=== PATIENT | male | born 1980 | race Two or more races ===

== ENCOUNTER 2022-03-27 11:07 | Outpatient (REF) | payer OTHER, SELFPAY ==
[2022-03-27 17:15] LABS: Fentanyl, urine POSITIVE (Not Detect)
== END 2022-03-27 11:08 | disposition home or self-care (01) ==
LOC: HO.LNP 11:07
PROVIDERS: Visit Provider Internal Medicine
DX: F11.20 Opioid dependence, uncomplicated (principal); Z79.899 Other long term (current) drug therapy
CPT/HCPCS: 80305; 80307; 99202

== ENCOUNTER → 2022-04-04 09:36 | Outpatient (BNVA) | payer OTHER, SELFPAY | PROVIDERS: Visit Provider Internal Medicine | DX: Z51.81 Encounter for therapeutic drug level monitoring (principal); F11.20 Opioid dependence, uncomplicated | CPT/HCPCS: 99212 ==

== ENCOUNTER → 2022-04-10 10:07 | Outpatient (BNVA) | payer OTHER, SELFPAY | PROVIDERS: Visit Provider Internal Medicine | DX: F11.20 Opioid dependence, uncomplicated (principal) | CPT/HCPCS: 99212 ==

== ENCOUNTER → 2022-04-17 10:32 | Outpatient (BNVA) | payer OTHER, SELFPAY | PROVIDERS: Visit Provider Internal Medicine | DX: Z51.81 Encounter for therapeutic drug level monitoring (principal); F11.20 Opioid dependence, uncomplicated | CPT/HCPCS: 80305; 99212 ==

== ENCOUNTER → 2022-04-24 10:32 | Outpatient (BNVA) | payer OTHER, SELFPAY | PROVIDERS: Visit Provider Internal Medicine | DX: F11.20 Opioid dependence, uncomplicated (principal); F41.9 Anxiety disorder, unspecified; F32.A Depression, unspecified | CPT/HCPCS: 80305; 99212 ==

== ENCOUNTER 2022-04-24 18:41 | Emergency (ER) | payer OTHER, SELFPAY ==
[2022-04-24 18:44] VITALS: BP 188/109; PULSE 77; RESP 20; TEMP 36.1; O2SAT 96; BMI 34.7
--- NOTE | 2022-04-24 20:33 | ED.WOUNDLAC ---
HPI - Wound/Laceration General Chief Complaint: Wound/Laceration Stated Complaint: Lac Middle Finger L Hand 04/24/22 Time Seen by Provider: 04/24/22 20:20 Source: patient Mode of arrival: ambulatory Limitations: no limitations History of Present Illness HPI narrative: This is a 41-year-old male no significant medical history presenting to the emergency department a laceration to the left 2nd digit, patient accidentally cut his finger while trying to split open frozen meat. Patient is not on blood thinners. He is not up-to-date on a tetanus shot. He is right-hand dominant. Denies numbness or tingling. Onset (ago): hour(s) (3) Location: other (Middle left finger ) Place: home Context: accidental Associated symptoms: none Related Data Previous Rx's Medication Instructions Recorded hydroxyzine pamoate 25 mg capsule 25 mg PO TID PRN nausea,anxiety 7 04/04/22 (Vistaril) days #21 caps bupropion HCl 150 mg 24 hr tablet, 150 mg PO QAM 30 days #30 tabs 04/17/22 extended release (Wellbutrin XL) clonidine HCl 0.1 mg tablet 0.1 mg PO TID PRN anxiety 14 days 04/17/22 #42 tabs buprenorphine 8 mg-naloxone 2 mg 2 film sublingual DAILY 14 days 04/24/22 sublingual film (Suboxone) #28 ea cephalexin 500 mg tablet 500 mg PO Q6H 7 days #28 tabs 04/24/22 doxycycline hyclate 100 mg capsule 100 mg PO BID 7 days #14 caps 04/24/22 Allergies Allergy/AdvReac Type Severity Reaction Status Date / Time No Known Allergies Allergy Verified 04/24/22 10:39 Review of Systems Review of Systems: Constitutional : No Fever, No Chills, Cardiovascular : No Chest Pain, No SOB Respiratory : No Dyspnea Gastrointestinal : No abdominal pain Musculoskeletal : No Joint Swelling Skin : No rash, positive skin laceration Neuro : No Weakness, No Numbness Psych : No SI/HI Yes all other systems are reviewed and are negative PMFSH Past Medical History Attestation statement: The following information was validated with the patient. Source: old records reviewed and nursing notes reviewed Social History Social History Advance Directives: No Advance Directives Information Provided: No Physical Exam Vital Signs: Vital Signs: Last Vital Signs Temp 97 F 04/24/22 18:44 Pulse 77 04/24/22 18:44 Resp 20 04/24/22 18:44 BP 188/109 H 04/24/22 18:44 Pulse Ox 96 04/24/22 18:44 O2 Del Method 04/24/22 18:44 BMI result Body Mass Index 34.7 HTN likely secondary to pain Appearance: Alert.? Oriented X3.? No acute distress.? Head: Normocephalic, atraumatic, no step-offs or deformities Eyes: Pupils equal, round and reactive to light.? ENT: Pharynx normal.? Neck: Normal inspection.? Neck supple.? CVS: Normal heart rate and rhythm.? Pulses normal.? Respiratory: No respiratory distress.? Breath sounds normal.? Abdomen: Soft and nontender.? Skin: Skin warm and dry.? Normal skin color.? Normal skin turgor.?+ laceration to left middle finger Extremities: No lower extremity edema.? No calf ttp. 5/5 strength to bilateral upper and lower extremities Back: No midline tenderness, no C-spine tenderness, full range of motion, no CVA tenderness bilaterally Neuro: Oriented X 3.? No motor deficit.? No sensory deficit. CN 2-12 intact Course Reevaluation(s) Reevaluation #1: Laceration was successfully sutured using two 5-0 sutures. No complications. Advised patient to return with new or worsening symptoms. At this time I feel comfortable discharge home. Time: 21:40 MDM - Wound/Laceration MDM Narrative Medical decision making narrative: 2035 41 yo m presents w/ lac to left middle finger happened prior to his arrival PE significant for lac to left middle finger Plan- suture Medical Records Attestation: I reviewed the patient's medical records. Lab Data Attestation: I reviewed the patient's lab results. Critical Care Time Critical Care Time Critical Care Time: No Discharge Plan Discharge Clinical Impression: Laceration Patient Disposition: Home, Self-Care Instructions: Laceration (ED), Finger Laceration (ED) Additional Instructions: Take your medications as prescribed. If you were prescribed antibiotics today, it is important that you take your medication to their entirety, do not skip any doses, do not finish them early. Follow-up with your primary care provider this week. Return to the emergency department with new or worsening symptoms. In case of emergency call 911 Return in 7-10 days for suture removal Prescriptions: New doxycycline hyclate 100 mg capsule 100 mg PO BID 7 Days Qty: 14 0RF cephalexin 500 mg tablet 500 mg PO Q6H 7 Days Qty: 28 0RF No Action bupropion HCl [Wellbutrin XL] 150 mg tablet extended release 24 hr 150 mg PO QAM 30 Days Qty: 30 5RF clonidine HCl 0.1 mg tablet 0.1 mg PO TID PRN (Reason: anxiety) 14 Days Qty: 42 1RF buprenorphine-naloxone [Suboxone] 8-2 mg film 2 film sublingual DAILY 14 Days Qty: 28 0RF Rx Instructions: place 1 strip/tab under (each) side of tongue hydroxyzine pamoate [Vistaril] 25 mg capsule 25 mg PO TID PRN (Reason: nausea,anxiety) 7 Days Qty: 21 0RF Referrals: Physician,Unknown J [Primary Care Provider] - 2 days Stand Alone Forms: Work/School Release Interventions: ED Discharge Assessment Last Done: 04/24/22 21:18
[2022-04-24] MEDS: Diphth,Pertus(ACell),Tet Adult 0.5 ML SYRINGE IM (21:06)
[2022-04-24] MEDS: Lidocaine HCl 1 % MPF 5 ML VIAL SUBCUT (21:07)
== END 2022-04-24 21:18 | disposition home or self-care (01) ==
PROVIDERS: Emergency Provider Emergency Medicine
DX: S61.213A Laceration without foreign body of left middle finger without damage to nail, initial encounter (principal); W26.9XXA Contact with unspecified sharp object(s), initial encounter; Y93.9 Activity, unspecified; Y92.9 Unspecified place or not applicable; Y99.9 Unspecified external cause status; Z79.899 Other long term (current) drug therapy
CPT/HCPCS: 12001; 90471; 90715; 99282; 99283

== ENCOUNTER 2022-05-10 10:20 | Outpatient (REF) | payer OTHER, SELFPAY ==
[2022-05-15 08:29] LABS: Codeine, Ur 160
[2022-05-15 08:30] LABS: Hydrocodone, Ur NEGATIVE; Hydromorphone, Ur NEGATIVE; Morphine, Ur NEGATIVE; Oxycodone, Ur NEGATIVE
[2022-05-15 08:31] LABS: Norhydrocodone, Ur NEGATIVE; Noroxycodone, Ur NEGATIVE; Oxymorphone, Ur NEGATIVE
[2022-05-15 09:00] LABS: Buprenorphine 95; Naloxone 242; Norbuprenorphine 656
== END 2022-05-10 10:21 | disposition home or self-care (01) ==
LOC: HO.LNP 10:20
PROVIDERS: Visit Provider Internal Medicine
DX: F11.20 Opioid dependence, uncomplicated (principal); Z79.899 Other long term (current) drug therapy
CPT/HCPCS: 80305; 80348; 80362; 80364; 80365; 99212

== ENCOUNTER → 2022-05-16 10:04 | Outpatient (BNVA) | payer OTHER, SELFPAY | PROVIDERS: Visit Provider Internal Medicine | DX: Z51.81 Encounter for therapeutic drug level monitoring (principal); F11.20 Opioid dependence, uncomplicated | CPT/HCPCS: 80305; 99212 ==

== ENCOUNTER → 2022-06-12 09:56 | Outpatient (BNVA) | payer OTHER, SELFPAY | PROVIDERS: Visit Provider Internal Medicine | DX: Z51.81 Encounter for therapeutic drug level monitoring (principal); F11.20 Opioid dependence, uncomplicated | CPT/HCPCS: 99212 ==

== ENCOUNTER → 2022-07-17 10:04 | Outpatient (BNVA) | payer OTHER, SELFPAY | PROVIDERS: Visit Provider Internal Medicine | DX: F11.20 Opioid dependence, uncomplicated (principal) | CPT/HCPCS: 99212 ==

== ENCOUNTER → 2022-08-18 09:43 | Outpatient (BNVA) | payer OTHER, SELFPAY | PROVIDERS: Visit Provider Internal Medicine | DX: F11.20 Opioid dependence, uncomplicated (principal); Z51.81 Encounter for therapeutic drug level monitoring; Z79.899 Other long term (current) drug therapy | CPT/HCPCS: 99212 ==

== ENCOUNTER → 2022-09-20 11:39 | Outpatient (BNVA) | payer OTHER, SELFPAY | PROVIDERS: Visit Provider Internal Medicine | DX: F11.20 Opioid dependence, uncomplicated (principal); Z51.81 Encounter for therapeutic drug level monitoring | CPT/HCPCS: 99212 ==

== ENCOUNTER → 2022-10-25 11:18 | Outpatient (BNVA) | payer OTHER, SELFPAY | PROVIDERS: Visit Provider Nurse Practitioner Psychiatric/Mental Health | DX: F11.20 Opioid dependence, uncomplicated (principal) | CPT/HCPCS: 80305; 99212 ==

== ENCOUNTER → 2022-11-22 09:05 | Outpatient (BNVA) | payer OTHER, SELFPAY | PROVIDERS: Visit Provider Nurse Practitioner Psychiatric/Mental Health | DX: F11.20 Opioid dependence, uncomplicated (principal) | CPT/HCPCS: 99212 ==

== ENCOUNTER → 2022-12-21 08:53 | Outpatient (BNVA) | payer OTHER, SELFPAY | PROVIDERS: Visit Provider Nurse Practitioner Psychiatric/Mental Health | DX: F11.20 Opioid dependence, uncomplicated (principal) | CPT/HCPCS: 99212 ==

== ENCOUNTER → 2023-02-05 15:19 | Outpatient (BNVA) | payer OTHER, SELFPAY | PROVIDERS: Visit Provider Nurse Practitioner Psychiatric/Mental Health | DX: F11.20 Opioid dependence, uncomplicated (principal); Z79.899 Other long term (current) drug therapy | CPT/HCPCS: 99212 ==

== ENCOUNTER → 2023-03-19 15:13 | Outpatient (BNVA) | payer OTHER, SELFPAY | PROVIDERS: Visit Provider Nurse Practitioner Psychiatric/Mental Health | DX: F11.23 Opioid dependence with withdrawal (principal); F41.1 Generalized anxiety disorder; Z71.51 Drug abuse counseling and surveillance of drug abuser; Z79.899 Other long term (current) drug therapy; Z51.81 Encounter for therapeutic drug level monitoring | CPT/HCPCS: 99212 ==

== ENCOUNTER → 2023-04-03 15:09 | Outpatient (BNVA) | payer OTHER, SELFPAY | PROVIDERS: PCP Internal Medicine; Visit Provider Nurse Practitioner Psychiatric/Mental Health | DX: F11.20 Opioid dependence, uncomplicated (principal); F41.1 Generalized anxiety disorder; Z79.899 Other long term (current) drug therapy | CPT/HCPCS: 99212 ==

== ENCOUNTER → 2023-05-03 14:08 | Outpatient (BNVA) | payer OTHER, SELFPAY | PROVIDERS: PCP Internal Medicine; Visit Provider Nurse Practitioner Psychiatric/Mental Health | DX: F11.20 Opioid dependence, uncomplicated (principal) | CPT/HCPCS: 80305; 99212 ==

== ENCOUNTER 2023-06-11 14:02 | Outpatient (AMB) | payer OTHER, SELFPAY ==
--- NOTE | 2023-06-11 14:04 | A.OFFVIS_ITS ---
Intake Vital Signs 06/11/23 14:08 BP 182/110 H Blood Pressure Location Lt radial Position Sitting Pulse 77 Pulse Source Pulse Oximeter Pulse Oximetry (%) 99 Oxygen Delivery Method Room Air Comment the patient/provider is working on his bp Intake Visit Reasons: MAT Visit Intake Note: the patient presents for a mat visit Brick Baker Required: No Allergies No Known Allergies Allergy (Verified 06/11/23 14:08) Do you need a note to return to daycare/school/sports/work: No HPI MAT Visit HPI Details Patient presents for OUD treatment follow up Currently prescribed suboxone 8mg BID Denies any issues related to recovery started a garden ' Vacation went well Appt scheduled with PCP --again discussed high blood pressure, he reports he has been checking at home and it is not as high as it is here in the office [facility] Medical History Opioid use disorder Review of Systems Const Reports as per HPI and Reports no additional complaints Physical Exam Vital Signs: Last Vital Signs Pulse 77 06/11/23 14:08 BP 182/110 H 06/11/23 14:08 Pulse Ox 99 06/11/23 14:08 Oxygen Delivery Method Room Air 06/11/23 14:08 Const General: cooperative and healthy appearing Nutritional Appearance: well nourished Orientation/consciousness: patient oriented x3 Limitations: no limitations Neuro General: patient oriented x3 Psych Appearance: well kempt Mental Status: mental status grossly normal Speech and movement: Normal speech and movement present Affect: normal affect Attitude: cooperative Thought process: Normal thought process present Thought content: Normal thought content present Insight: Good insight present (Psych) Judgement: Good judgement present (Psych) Assessment & Plan Assessment & Plan (1) Opioid use disorder: Code(s): F11.90 - Opioid use, unspecified, uncomplicated Plan: * continue suboxone at current dose * follow up 4 wks * denies any blurred vision, headache or dizziness--encouraged to present to ED should these sx present Medications: Refilled buprenorphine-naloxone 8-2 mg (Suboxone) 1 film sublingual BID 30 days 60 ea 0RF buprenorphine-naloxone 8-2 mg (Suboxone) 1 film sublingual BID 60 ea 0RF 30 days Discontinued hydroxyzine pamoate Discontinued Reason: Patient no longer taking 25 mg PO BEDTIME PRN 30 caps 2RF for anxiety Coding Level of Care Code Est Pt Level 3 (41987) Diagnoses Opioid use disorder F11.90
[2023-06-11 14:08] VITALS: BP 182/110; PULSE 77; O2SAT 99
== END 2023-06-11 14:35 | disposition home or self-care (01) ==
LOC: HO.HCC 14:02
PROVIDERS: PCP Internal Medicine; Visit Provider Nurse Practitioner Psychiatric/Mental Health
DX: F11.90 Opioid use, unspecified, uncomplicated (principal)
CPT/HCPCS: 99213

== ENCOUNTER → 2023-06-11 14:02 | Outpatient (BNVA) | payer OTHER, SELFPAY | PROVIDERS: PCP Internal Medicine; Visit Provider Nurse Practitioner Psychiatric/Mental Health | DX: F11.20 Opioid dependence, uncomplicated (principal) | CPT/HCPCS: 99212 ==

== ENCOUNTER 2023-07-10 13:48 | Outpatient (AMB) | payer OTHER, SELFPAY ==
[2023-07-10 14:08] VITALS: BP 180/90; PULSE 82; O2SAT 98
--- NOTE | 2023-07-10 14:08 | A.OFFVIS_ITS ---
Intake Vital Signs 07/10/23 14:08 BP 180/90 H Blood Pressure Location Lt radial Position Sitting Pulse 82 Pulse Source Pulse Oximeter Pulse Oximetry (%) 98 Oxygen Delivery Method Room Air Intake Visit Reasons: MAT Visit Intake Note: the patient presents for a mat visit Change Management Coordinator Required: No Allergies No Known Allergies Allergy (Verified 07/10/23 14:09) Do you need a note to return to daycare/school/sports/work: No HPI MAT Visit HPI Details Patient presents for follow-up. Currently prescribed Suboxone 8 mg b.i.d.. Continues to do well with recovery. States that he feels stronger every day and reflects back on the time when he was actively using and does not want to go back to that. Relationships continue to strengthen. Sertraline 100 mg daily. Finds it helpful with his mood and is able to decrease reactivity and respond more appropriately. Did not go to see primary care provider. This automobile and property underwriter advised patient that he will need to go to urgent care center prior to his next appointment as his blood pressure continues to be very high. Patient reports that he has been taking his blood pressure at home and it is between 130-140 systolic. This automobile and property underwriter still encouraged patient to present to urgent care to have this addressed. [facility] Medical History Opioid use disorder Review of Systems Const Reports as per HPI Physical Exam Vital Signs: Last Vital Signs Pulse 82 07/10/23 14:08 BP 180/90 H 07/10/23 14:08 Pulse Ox 98 07/10/23 14:08 Oxygen Delivery Method Room Air 07/10/23 14:08 Const General: cooperative and healthy appearing Nutritional Appearance: well nourished Orientation/consciousness: patient oriented x3 Limitations: no limitations Neuro General: patient oriented x3 Psych Appearance: well kempt Mental Status: mental status grossly normal Speech and movement: Normal speech and movement present Affect: normal affect Attitude: cooperative Thought process: Normal thought process present Thought content: Normal thought content present Insight: Good insight present (Psych) Judgement: Good judgement present (Psych) Assessment & Plan Assessment & Plan (1) Opioid use disorder: Code(s): F11.90 - Opioid use, unspecified, uncomplicated Plan: * Continue Suboxone at current dose * Follow up for week (2) ANJU (generalized anxiety disorder): Code(s): F41.1 - Generalized anxiety disorder Plan: * Continue sertraline at current dose Medications: Refilled buprenorphine-naloxone 8-2 mg (Suboxone) 1 film sublingual BID 60 ea 0RF 30 days Coding Level of Care Code Est Pt Level 3 (14121) Diagnoses Opioid use disorder F11.90 ANJU (generalized anxiety disorder) F41.1
== END 2023-07-10 14:13 | disposition home or self-care (01) ==
LOC: HO.HCC 13:48
PROVIDERS: PCP Internal Medicine; Visit Provider Nurse Practitioner Psychiatric/Mental Health
DX: F11.90 Opioid use, unspecified, uncomplicated (principal); F41.1 Generalized anxiety disorder
CPT/HCPCS: 99213

== ENCOUNTER → 2023-07-10 13:48 | Outpatient (BNVA) | payer OTHER, SELFPAY | PROVIDERS: PCP Internal Medicine; Visit Provider Nurse Practitioner Psychiatric/Mental Health | DX: Z51.81 Encounter for therapeutic drug level monitoring (principal); F11.20 Opioid dependence, uncomplicated; F41.1 Generalized anxiety disorder | CPT/HCPCS: 99212 ==

== ENCOUNTER 2023-09-20 15:29 | Outpatient (AMB) | payer OTHER, SELFPAY ==
--- NOTE | 2023-09-20 15:34 | MHC.OFFVIS ---
Intake Vital Signs 09/20/23 15:35 BP 178/98 H Blood Pressure Location Lt radial Position Sitting Pulse 85 Pulse Source Pulse Oximeter Pulse Oximetry (%) 97 Oxygen Delivery Method Room Air Comment the patient is aware of BP Intake Visit Reasons: mat visit Intake Note: the patient presents for a mat visit Custody Officer Required: No Allergies No Known Allergies Allergy (Verified 09/20/23 15:36) Do you need a note to return to daycare/school/sports/work: No HPI mat visit HPI Details Pt presents for OUD treatment and follow up. Blood pressure elevated today, has been consistently elevated for visits. Consistently declining to seek higher level of care for his blood pressure. He reports he takes his pressures at home and they have all been much lower than when he comes into the clinic. Reports he becomes anxious pulling into the parking lot and does not know why. Denies headache, vision changes, or dizziness. Reviewed when he should seek urgent medical attention. Has no concerns with his recovery, states the suboxone has been good, dose is good- he is not experiencing withdrawal symptoms or cravings. Reports his mood is much better with the sertraline, says he is much less irritable denies concerns or side effects from med. Bright affect. He is looking forward to the holidays. [facility] Medical History Opioid use disorder Review of Systems Const Reports as per HPI Physical Exam Vital Signs: Last Vital Signs Pulse 85 09/20/23 15:35 BP 178/98 H 09/20/23 15:35 Pulse Ox 97 09/20/23 15:35 Oxygen Delivery Method Room Air 09/20/23 15:35 Const General: cooperative, healthy appearing and no acute distress Resp Effort & Inspection: normal respiratory effort Skin General skin exam: no rashes or lesions noted Psych Appearance: grossly normal and well kempt Mental Status: mental status grossly normal Speech and movement: Normal speech and movement present Attitude: cooperative Assessment & Plan Assessment & Plan (1) Opioid use disorder: Code(s): F11.90 - Opioid use, unspecified, uncomplicated Plan: Continue suboxone at current dose. Discussed blood pressure monitoring and symptoms he should be aware of to seek emergent care. Follow up in 4 weeks. Plan reviewed with KRISTEN Cortez Medications: Refilled buprenorphine-naloxone 8-2 mg (Suboxone) 1 film sublingual BID 60 ea 0RF 30 days Coding Level of Care Code Est Pt Level 3 (77704) Diagnoses Opioid use disorder F11.90
[2023-09-20 15:35] VITALS: BP 178/98; PULSE 85; O2SAT 97
== END 2023-09-20 15:47 | disposition home or self-care (01) ==
PROVIDERS: PCP Internal Medicine; Visit Provider Nurse Practitioner Psychiatric/Mental Health
DX: F11.90 Opioid use, unspecified, uncomplicated (principal)
CPT/HCPCS: 99213

== ENCOUNTER → 2023-09-20 15:29 | Outpatient (BNVA) | payer OTHER, SELFPAY | PROVIDERS: PCP Internal Medicine; Visit Provider Nurse Practitioner Psychiatric/Mental Health | DX: F11.20 Opioid dependence, uncomplicated (principal) | CPT/HCPCS: 99212 ==

== ENCOUNTER 2023-10-26 11:31 | Outpatient (AMB) | payer OTHER, SELFPAY ==
--- NOTE | 2023-10-26 11:33 | A.OFFVIS_ITS ---
Intake Vital Signs 10/26/23 11:38 BP 178/98 H Blood Pressure Location Lt radial Position Sitting Pulse 86 Pulse Source Palpation Pulse Oximetry (%) 96 Oxygen Delivery Method Room Air Comment THE PATIENT MADE AWARE Intake Visit Reasons: MAT Visit Intake Note: The patient presents for a mat visit Horse Breaker Required: No Allergies No Known Allergies Allergy (Verified 10/26/23 11:44) Do you need a note to return to daycare/school/sports/work: No HPI MAT Visit HPI Details Patient presents for follow up Doing well with recovery BP still high. Met with KRISTEN Harrison in same visit and discussed starting medication Patient willing to trial amlodipine [facility] Medical History (Updated 10/26/23 @ 17:20 by Radha Hoyt CNP) Opioid use disorder Review of Systems Const Reports as per HPI and Reports no additional complaints Physical Exam Vital Signs: Last Vital Signs Pulse 86 10/26/23 11:38 BP 178/98 H 10/26/23 11:38 Pulse Ox 96 10/26/23 11:38 Oxygen Delivery Method Room Air 10/26/23 11:38 Const General: cooperative, healthy appearing and no acute distress Resp Effort & Inspection: normal respiratory effort Skin General skin exam: no rashes or lesions noted Psych Appearance: grossly normal and well kempt Mental Status: mental status grossly normal Speech and movement: Normal speech and movement present Attitude: cooperative Assessment & Plan Assessment & Plan (1) Hypertension: Code(s): I10 - Essential (primary) hypertension Plan: * amlodipine 5mg QD (2) Opioid use disorder, moderate, in sustained remission, dependence: Code(s): F11.21 - Opioid dependence, in remission Plan: * continue suboxone at current dose * follow up 4 weeks Medications: New amlodipine Take 1/2 tab for 3 days and progess to full tab daily if well tolerated 5 mg PO DAILY 30 tabs 0RF Dorita Cortez NP Refilled buprenorphine-naloxone 8-2 mg (Suboxone) 1 film sublingual BID 60 ea 0RF 30 days Radha Hoyt CNP Coding Level of Care Code Est Pt Level 4 (27513) Diagnoses Hypertension I10 Opioid use disorder, moderate, in sustained remission, dependence F11.21
[2023-10-26 11:38] VITALS: BP 178/98; PULSE 86; O2SAT 96
== END 2023-10-26 11:58 | disposition home or self-care (01) ==
PROVIDERS: PCP Internal Medicine; Visit Provider Nurse Practitioner Psychiatric/Mental Health
DX: F11.21 Opioid dependence, in remission (principal); I10 Essential (primary) hypertension
CPT/HCPCS: 99214

== ENCOUNTER → 2023-10-26 11:31 | Outpatient (BNVA) | payer OTHER, SELFPAY | PROVIDERS: PCP Internal Medicine; Visit Provider Nurse Practitioner Psychiatric/Mental Health | DX: F11.21 Opioid dependence, in remission (principal); I10 Essential (primary) hypertension | CPT/HCPCS: 99212 ==

== ENCOUNTER 2023-11-23 14:36 | Outpatient (AMB) | payer OTHER, SELFPAY ==
--- NOTE | 2023-11-23 14:37 | A.OFFVISCC_ITS ---
Intake Vital Signs 11/23/23 14:43 BP 180/90 H Blood Pressure Location Lt radial Position Sitting Pulse 89 Pulse Source Pulse Oximeter Pulse Oximetry (%) 96 Oxygen Delivery Method Room Air Comment the patient is made aware Intake Visit Reasons: MAT Visit Intake Note: the patient is here for a mat visit Powder Mill Operator Required: No Allergies No Known Allergies Allergy (Verified 11/23/23 14:44) Do you need a note to return to daycare/school/sports/work: No HPI MAT Visit HPI Details Patient presents for follow up started on amlodipine 5mg 4 weeks ago BP readings at home have not decreased since starting medication Still reading 160-180/100 Denies any sx, including headache, blurred vision, dizziness, etc No issues related to recovery [facility] Medical History (Updated 10/26/23 @ 17:20 by Radha Hoyt CNP) Opioid use disorder Review of Systems Const Reports as per HPI Physical Exam Vital Signs: Last Vital Signs Pulse 89 11/23/23 14:43 BP 180/90 H 11/23/23 14:43 Pulse Ox 96 11/23/23 14:43 Oxygen Delivery Method Room Air 11/23/23 14:43 Const General: cooperative, healthy appearing and no acute distress Resp Effort & Inspection: normal respiratory effort Skin General skin exam: no rashes or lesions noted Psych Appearance: grossly normal and well kempt Mental Status: mental status grossly normal Speech and movement: Normal speech and movement present Attitude: cooperative Assessment & Plan Assessment & Plan (1) Hypertension: Code(s): I10 - Essential (primary) hypertension Plan: * amlodipine Increased to 10mg QD (discussed with KRISTEN Harrison) * follow up one week BP reading (2) Opioid use disorder, moderate, in sustained remission, dependence: Code(s): F11.21 - Opioid dependence, in remission Plan: * continue suboxone at current dose * follow up 4 weeks Medications: New amlodipine 10 mg PO DAILY 30 tabs 0RF Refilled buprenorphine-naloxone 8-2 mg (Suboxone) 1 film sublingual BID 30 days 60 ea 0RF Discontinued amlodipine Take 1/2 tab for 3 days and progess to full tab daily if well tolerated Discontinued Reason: Doctor's Order 5 mg PO DAILY 30 tabs 0RF Coding Level of Care Code Est Pt Level 3 (80463) Diagnoses Hypertension I10 Opioid use disorder, moderate, in sustained remission, dependence F11.21
[2023-11-23 14:43] VITALS: BP 180/90; PULSE 89; O2SAT 96
== END 2023-11-23 15:05 | disposition home or self-care (01) ==
PROVIDERS: PCP Internal Medicine; Visit Provider Nurse Practitioner Psychiatric/Mental Health
DX: F11.21 Opioid dependence, in remission (principal); I10 Essential (primary) hypertension
CPT/HCPCS: 99213

== ENCOUNTER → 2023-11-23 14:36 | Outpatient (BNVA) | payer OTHER, SELFPAY | PROVIDERS: PCP Internal Medicine; Visit Provider Nurse Practitioner Psychiatric/Mental Health | DX: F11.21 Opioid dependence, in remission (principal); I10 Essential (primary) hypertension | CPT/HCPCS: 99212 ==

== ENCOUNTER 2023-12-25 09:43 | Outpatient (AMB) | payer OTHER, SELFPAY ==
[2023-12-25 10:06] VITALS: BP 156/88; PULSE 64; O2SAT 97; BMI 33.3
--- NOTE | 2023-12-25 10:06 | A.OFFVISCC_ITS ---
Intake Vital Signs 12/25/23 10:06 Height 5 ft 9 in Weight 225 lb 6 oz BMI 33.3 BP 156/88 H Blood Pressure Location Lt radial Position Sitting Pulse 64 Pulse Source Pulse Oximeter Pulse Oximetry (%) 97 Oxygen Delivery Method Room Air Intake Visit Reasons: MAT Visit Intake Note: The patient presents for a mat visit Process Improvement Analyst Required: No Allergies No Known Allergies Allergy (Verified 12/25/23 10:07) Do you need a note to return to daycare/school/sports/work: No HPI MAT Visit HPI Details Patient presents for OUD treatment follow up Currently prescribed suboxone 8mg BID. He reports he continues to do well with recovery. Excited to go on vacation with his family later today. Discussed BP readings at home, KRISTEN Cortez present at this time. He reports BP reading today is the lowest it has been in the last month. KRISTEN Cortez advised patient that HCTZ would be added to current regimen. She provided education to patient on dosing, administration times and side effects. [facility] Medical History (Updated 10/26/23 @ 17:20 by Radha Hoyt CNP) Opioid use disorder Review of Systems Const Reports as per HPI and Reports no additional complaints Physical Exam Vital Signs: Last Vital Signs Pulse 64 12/25/23 10:06 BP 156/88 H 12/25/23 10:06 Pulse Ox 97 12/25/23 10:06 Oxygen Delivery Method Room Air 12/25/23 10:06 BMI result Body Mass Index 33.3 Const General: cooperative, healthy appearing and no acute distress Resp Effort & Inspection: normal respiratory effort Skin General skin exam: no rashes or lesions noted Psych Appearance: grossly normal and well kempt Mental Status: mental status grossly normal Speech and movement: Normal speech and movement present Attitude: cooperative Assessment & Plan Assessment & Plan (1) Opioid use disorder, moderate, in sustained remission, dependence: Code(s): F11.21 - Opioid dependence, in remission Plan: * continue suboxone at current dose * relapse prevention discussion (2) Hypertension: Code(s): I10 - Essential (primary) hypertension Plan: * hctz ordered * encouraged to call office with any questions or concerns * reminded that lab work ordered * follow up one month Medications: New hydrochlorothiazide 12.5 mg PO QAM 14 tabs 0RF Dorita Cortez NP Refilled buprenorphine-naloxone 8-2 mg (Suboxone) 1 film sublingual BID 30 days 60 ea 0RF Radha Hoyt CNP amlodipine 10 mg PO DAILY 30 tabs 0RF Radha Hoyt CNP Coding Level of Care Code Est Pt Level 4 (83304) Diagnoses Opioid use disorder, moderate, in sustained remission, dependence F11.21 Hypertension I10
== END 2023-12-25 10:32 | disposition home or self-care (01) ==
PROVIDERS: PCP Internal Medicine; Visit Provider Nurse Practitioner Psychiatric/Mental Health
DX: F11.21 Opioid dependence, in remission (principal); I10 Essential (primary) hypertension
CPT/HCPCS: 99214

== ENCOUNTER → 2023-12-25 09:43 | Outpatient (BNVA) | payer OTHER, SELFPAY | PROVIDERS: PCP Internal Medicine; Visit Provider Nurse Practitioner Psychiatric/Mental Health ==

== ENCOUNTER 2024-01-30 14:50 | Outpatient (AMB) | payer OTHER, SELFPAY ==
--- NOTE | 2024-01-30 14:55 | A.OFFVISCC_ITS ---
Intake Vital Signs 01/30/24 14:57 BP 130/60 Blood Pressure Location Rt radial Position Right Lateral Respiration 19 Pulse 88 Intake Visit Reasons: MAT Allergies No Known Allergies Allergy (Verified 12/25/23 10:07) HPI MAT HPI Details Patient presents for MAT visit Reports an improvement in his blood pressure home readings States they have all been reading less than 130s/80's Has intake appointment next week with new PCP Has no concerns for recovery today Reports decrease in overall stress levels [facility] Medical History (Updated 01/30/24 @ 15:16 by Dorita Cortez NP) Opioid use disorder Review of Systems Const Reports as per HPI Physical Exam Vital Signs: Last Vital Signs Pulse 88 01/30/24 14:57 Resp 19 01/30/24 14:57 BP 130/60 01/30/24 14:57 Const General: cooperative and comfortable Resp Effort & Inspection: normal respiratory effort Psych Appearance: grossly normal Mental Status: mental status grossly normal Speech and movement: Normal speech and movement present Affect: normal affect Thought process: Normal thought process present Assessment & Plan Assessment & Plan (1) Opioid use disorder, moderate, in sustained remission, dependence: Code(s): F11.21 - Opioid dependence, in remission Plan: -MassPat reviewed -Continue suboxone 8mg BID (tolerating well) -Reviewed with him outstanding labwork, he is agreeable to getting done prior to next visit -Follow up 4 weeks (2) Hypertension: Code(s): I10 - Essential (primary) hypertension Qualifiers: Hypertension type: primary hypertension Qualified Code(s): I10 - Essential (primary) hypertension Plan: -Controlled with amlodipine and HCTZ, cont meds same dose -Encouraged him to continue with home measurements and to start writing them d own Medications: Refilled amlodipine 10 mg PO DAILY 30 tabs 3RF buprenorphine-naloxone 8-2 mg (Suboxone) 1 film sublingual BID 60 ea 0RF 30 days hydrochlorothiazide 12.5 mg PO QAM 30 tabs 0RF Coding Level of Care Code Est Pt Level 3 (95710) Diagnoses Opioid use disorder, moderate, in sustained remission, dependence F11.21 Primary hypertension I10 Hypertension type: primary hypertension
[2024-01-30 14:57] VITALS: BP 130/60; PULSE 88; RESP 19
== END 2024-01-30 15:13 | disposition home or self-care (01) ==
PROVIDERS: PCP Internal Medicine; Visit Provider Nurse Practitioner Family
DX: F11.21 Opioid dependence, in remission (principal); I10 Essential (primary) hypertension
CPT/HCPCS: 99213

== ENCOUNTER → 2024-01-30 14:50 | Outpatient (BNVA) | payer OTHER, SELFPAY | PROVIDERS: PCP Internal Medicine; Visit Provider Nurse Practitioner Family ==

== ENCOUNTER 2024-03-13 16:03 | Outpatient (AMB) | payer OTHER, SELFPAY ==
--- NOTE | 2024-03-13 16:49 | A.OFFVISCC_ITS ---
Intake Visit Reasons: MAT Allergies No Known Allergies Allergy (Verified 12/25/23 10:07) HPI HPI MAT: Details: Patient presents via telehealth States he has been doing well Ran out of suboxone and setraline 2 days ago- he was unconcerned about it due to pending appointment today States he is starting to feel it today Has been regularly monitoring his blood pressures, states his home device reads higher than the b/p's taken in office T/w encouraged him to bring his cuff in to check it against a manual pressure Has no concerns for recovery today [facility] Medical History (Updated 01/30/24 @ 15:16 by Dorita Cortez NP) Opioid use disorder Review of Systems Const Reports as per HPI Telehealth Telehealth Telehealth Platform: Telephone Location of provider rendering services: practice address Location of patient: address on file Patient Identification confirmed using: Name, : Yes Telehealth method: voice only Patient verbally consented to treatment: Yes Patient verbally consented to billing insurance company: Yes Patient informed of any privacy concerns related to visit: Yes Minutes spent on Phone/Video with Pt.: 10 Assessment & Plan Assessment & Plan (1) Opioid use disorder, moderate, in sustained remission, dependence: Code(s): F11.21 - Opioid dependence, in remission Category: Medical Plan: -Mass pat reviewed -Suboxone refilled -Reminded him about his open lab orders -Follow up 1 month (2) Hypertension: Code(s): I10 - Essential (primary) hypertension Category: Medical Qualifiers: Hypertension type: primary hypertension Qualified Code(s): I10 - Essential (primary) hypertension Plan: -Lipid panel added to labwork -Continue HCTZ and amlodipine -Bring blood pressure cuff to next visit (3) ANJU (generalized anxiety disorder): Code(s): F41.1 - Generalized anxiety disorder Category: Medical Plan: -Sertraline refilled, he is tolerating it well, reports mood is good Orders: Orders Lipid Panel Today I10 - Essential (primary) hypertension Medications: Refilled buprenorphine-naloxone 8-2 mg (Suboxone) 1 film sublingual BID 60 ea 0RF 30 days sertraline 100 mg PO DAILY 90 tabs 3RF NS
== END 2024-03-13 16:11 | disposition home or self-care (01) ==
PROVIDERS: PCP Internal Medicine; Visit Provider Nurse Practitioner Family
DX: F11.21 Opioid dependence, in remission (principal); I10 Essential (primary) hypertension; F41.1 Generalized anxiety disorder
CPT/HCPCS: 99212

== ENCOUNTER → 2024-03-13 16:03 | Outpatient (BNVA) | payer OTHER, SELFPAY | PROVIDERS: PCP Internal Medicine; Visit Provider Nurse Practitioner Family ==

== ENCOUNTER 2024-04-11 14:51 | Outpatient (AMB) | payer OTHER, SELFPAY ==
[2024-04-11 15:04] VITALS: BP 140/80; PULSE 89; RESP 19; O2SAT 98
--- NOTE | 2024-04-11 15:04 | MHC.AM.SUB ---
Vital Signs 04/11/24 15:04 BP 140/80 H Blood Pressure Location Rt brachial Position Sitting Respiration 19 Pulse 89 Pulse Oximetry (%) 98 Intake Visit Reasons: MAT Allergies No Known Allergies Allergy (Verified 12/25/23 10:07) HPI HPI MAT: Details: Patient presents for MAT appointment Denies any concerns today Has a PCP appointment next month Has been avoiding getting his labwork done, states getting labs done makes him nervous Taking suboxone 8mg BID and tolerating well No concerns for side effects, withdrawal symptoms or cravings HPI Comments Details: Patient presents for MAT visit [facility] Medical History (Updated 01/30/24 @ 15:16 by Dorita Cortez NP) Opioid use disorder Review of Systems Const Reports as per HPI Physical Exam Vital Signs: Last Vital Signs Pulse 89 04/11/24 15:04 Resp 19 04/11/24 15:04 BP 140/80 H 04/11/24 15:04 Pulse Ox 98 04/11/24 15:04 Const General: cooperative and no acute distress Resp Effort & Inspection: normal respiratory effort and able to speak in complete sentences Psych Appearance: grossly normal Mental Status: mental status grossly normal Speech and movement: Normal speech and movement present Affect: normal affect Attitude: cooperative Thought process: Normal thought process present Assessment & Plan Assessment & Plan (1) Opioid use disorder, moderate, in sustained remission, dependence: Code(s): F11.21 - Opioid dependence, in remission Category: Medical Plan: -Mass pat reviewed -Suboxone refill sent to pharmacy -Follow up 8 weeks (2) Hypertension: Code(s): I10 - Essential (primary) hypertension Category: Medical Qualifiers: Hypertension type: primary hypertension Qualified Code(s): I10 - Essential (primary) hypertension Plan: -Stable on current antihypertensives, continue HCTZ and amlodipine Medications: Refilled buprenorphine-naloxone 8-2 mg (Suboxone) 1 film sublingual BID 60 ea 1RF 30 days
== END 2024-04-11 15:09 | disposition home or self-care (01) ==
PROVIDERS: PCP Internal Medicine; Visit Provider Nurse Practitioner Family
DX: F11.21 Opioid dependence, in remission (principal); I10 Essential (primary) hypertension
CPT/HCPCS: 99213

== ENCOUNTER → 2024-04-11 14:51 | Outpatient (BNVA) | payer OTHER, SELFPAY | PROVIDERS: PCP Internal Medicine; Visit Provider Nurse Practitioner Family | DX: I10 Essential (primary) hypertension (principal) ==

== ENCOUNTER 2024-06-06 08:39 | Outpatient (AMB) | payer OTHER, SELFPAY ==
--- NOTE | 2024-06-06 08:40 | A.OFFVISCC_ITS ---
Intake Visit Reasons: Tele Allergies No Known Allergies Allergy (Verified 12/25/23 10:07) HPI HPI Tele: Details: Patient presents for follow up via telehealth Currently prescribed Suboxone 8mg BID Tolerating current dose No issues related to recovery Depression and irritability well managed with Sertaline BP at home has been 140/90 at home PCP follow up in July [facility] Medical History (Updated 01/30/24 @ 15:16 by Dorita Cortez NP) Opioid use disorder Review of Systems Const Reports as per HPI and Reports no additional complaints Telehealth Telehealth Telehealth Platform: Telephone Location of provider rendering services: practice address Location of patient: address on file Patient Identification confirmed using: Name, : Yes Telehealth method: voice only Patient verbally consented to treatment: Yes Patient verbally consented to billing insurance company: Yes Minutes spent on Phone/Video with Pt.: 15 Assessment & Plan Assessment & Plan (1) Opioid use disorder, moderate, in sustained remission, dependence: Code(s): F11.21 - Opioid dependence, in remission Category: Medical Plan: * continue suboxone at current dose * follow up 2 months (2) ANJU (generalized anxiety disorder): Code(s): F41.1 - Generalized anxiety disorder Category: Medical Plan: * continue sertaline * no refills needed at this time (3) Hypertension: Code(s): I10 - Essential (primary) hypertension Category: Medical Qualifiers: Hypertension type: primary hypertension Qualified Code(s): I10 - Essential (primary) hypertension Plan: * continue medications * follow up with PCP next month Medications: Refilled buprenorphine-naloxone 8-2 mg (Suboxone) 1 film sublingual BID 30 days 60 ea 1RF
== END 2024-06-06 09:10 | disposition home or self-care (01) ==
PROVIDERS: PCP Internal Medicine; Visit Provider Nurse Practitioner Psychiatric/Mental Health
DX: F11.21 Opioid dependence, in remission (principal); F41.1 Generalized anxiety disorder; I10 Essential (primary) hypertension
CPT/HCPCS: 99214

== ENCOUNTER → 2024-06-06 08:39 | Outpatient (BNVA) | payer OTHER, SELFPAY | PROVIDERS: PCP Internal Medicine; Visit Provider Nurse Practitioner Psychiatric/Mental Health | DX: I10 Essential (primary) hypertension (principal) ==

== ENCOUNTER 2024-09-03 15:22 | Outpatient (AMB) | payer OTHER, SELFPAY ==
--- NOTE | 2024-09-03 15:28 | MHC.AM.SUB ---
Intake Visit Reasons: MAT Allergies No Known Allergies Allergy (Verified 12/25/23 10:07) HPI HPI MAT: Details: Patient presents for follow up Currently prescribed Suboxone 8mg BID Missed PCP appt last month due to caring for his father Reports his BP was higher last week --believes it was due to caffeine, because overall systolic has been in the 130s No issues related to recovery feels affect/mood stable with sertraline [facility] Medical History (Updated 01/30/24 @ 15:16 by Dorita Cortez NP) Opioid use disorder Review of Systems Const Reports as per HPI Physical Exam Const General: cooperative and no acute distress Resp Effort & Inspection: normal respiratory effort and able to speak in complete sentences Psych Appearance: grossly normal Mental Status: mental status grossly normal Speech and movement: Normal speech and movement present Affect: normal affect Attitude: cooperative Thought process: Normal thought process present Assessment & Plan Assessment & Plan (1) Opioid use disorder, moderate, in sustained remission, dependence: Code(s): F11.21 - Opioid dependence, in remission Category: Medical Plan: continue suboxone at current dose follow up 2 months (2) ANJU (generalized anxiety disorder): Code(s): F41.1 - Generalized anxiety disorder Category: Medical Plan: continue sertaline no refills needed at this time (3) Hypertension: Code(s): I10 - Essential (primary) hypertension Category: Medical Qualifiers: Hypertension type: primary hypertension Qualified Code(s): I10 - Essential (primary) hypertension Plan: continue medications needs to reschedule with PCP labs to be completed Orders: Orders Comprehensive Met. Panel 09/03/24 I10 - Essential (primary) hypertension Medications: Refilled buprenorphine-naloxone 8-2 mg (Suboxone) 1 film sublingual BID 60 ea 1RF 30 days
== END 2024-09-03 16:16 | disposition home or self-care (01) ==
LOC: HO.HCC 15:23
PROVIDERS: PCP Internal Medicine; Visit Provider Nurse Practitioner Psychiatric/Mental Health
DX: F11.21 Opioid dependence, in remission (principal); F41.1 Generalized anxiety disorder; I10 Essential (primary) hypertension
CPT/HCPCS: 99214

== ENCOUNTER → 2024-09-03 15:22 | Outpatient (BNVA) | payer OTHER, SELFPAY | PROVIDERS: PCP Internal Medicine; Visit Provider Nurse Practitioner Psychiatric/Mental Health ==

== ENCOUNTER 2024-11-19 09:24 | Outpatient (AMB) | payer OTHER, SELFPAY ==
--- NOTE | 2024-11-19 09:34 | A.OFFVISCC_ITS ---
Vital Signs 11/19/24 09:40 BP 165/95 H Position Sitting Respiration 20 Pulse 75 Pulse Source Pulse Oximeter Intake Visit Reasons: MAT Office Allergies No Known Allergies Allergy (Verified 12/25/23 10:07) HPI [facility] MAT Office: Details: Patient presents for OUD treatment follow up Currently prescribed suboxone 8mg BID Doing well in terms of recovery Reflecting on 2 years in treatment Feeling grateful for all of the positive things that have occured in his life since then Mood continues to be stable with sertraline Has PCP appt today Review of Systems Const Reports as per HPI Physical Exam Vital Signs: Last Vital Signs Pulse 75 11/19/24 09:40 Resp 20 11/19/24 09:40 BP 165/95 H 11/19/24 09:40 Const General: cooperative, healthy appearing, comfortable and well groomed Orientation/consciousness: patient oriented x3 Limitations: no limitations Neuro General: patient oriented x3 Psych Appearance: well kempt Speech and movement: Clear speech present Affect: normal affect Attitude: cooperative Thought process: Normal thought process present Thought content: Normal thought content present Insight: Good insight present (Psych) Judgement: Good judgement present (Psych) [facility] Medical History (Updated 01/30/24 @ 15:16 by Dorita Cortez NP) Opioid use disorder Assessment & Plan Assessment & Plan (1) Opioid use disorder, moderate, in sustained remission, dependence: Code(s): F11.21 - Opioid dependence, in remission Category: Medical Plan: * continue suboxone at current dose * follow up 3 months (2) ANJU (generalized anxiety disorder): Code(s): F41.1 - Generalized anxiety disorder Category: Medical Plan: * continue sertraline at current dose Medications: Refilled buprenorphine-naloxone 8-2 mg (Suboxone) 1 film sublingual BID 30 days 60 ea 2RF
[2024-11-19 09:40] VITALS: BP 165/95; PULSE 75; RESP 20
== END 2024-11-19 10:24 | disposition home or self-care (01) ==
PROVIDERS: PCP Internal Medicine; Visit Provider Nurse Practitioner Psychiatric/Mental Health
DX: F11.21 Opioid dependence, in remission (principal); F41.1 Generalized anxiety disorder
CPT/HCPCS: 99214

== ENCOUNTER → 2024-11-19 09:24 | Outpatient (BNVA) | payer OTHER, SELFPAY | PROVIDERS: PCP Internal Medicine; Visit Provider Nurse Practitioner Psychiatric/Mental Health ==

== ENCOUNTER 2025-02-27 14:27 | Outpatient (AMB) | payer OTHER, SELFPAY ==
--- NOTE | 2025-02-27 14:33 | A.OFFVIS_ITS ---
Vital Signs 02/27/25 14:34 Height 5 ft 9 in Weight 240 lb BMI 35.4 BP 180/100 H Intake Visit Reasons: MAT Allergies No Known Allergies Allergy (Verified 02/27/25 14:35) HPI HPI MAT: Details: He has run out of strips and has some mild withdrawal. 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 He has not done blood work recently. He has no need of counselor at this time. He recently went on cruise to [place]. 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 Code(s): F11.21 - Opioid dependence, in remission Category: Medical Plan: Would continue Suboxone 8/2 bid,one month and one refill. See in two months Check labs at some point (ordered). Orders: Orders Hepatitis C Antibody Today F11.21 - Opioid dependence, in remission Hepatitis C Viral Load Today F11.21 - Opioid dependence, in remission Hepatitis B Surface Antibody Today F11.21 - Opioid dependence, in remission T Spot TB Today F11.21 - Opioid dependence, in remission HIV Ab/Ag Today F11.21 - Opioid dependence, in remission Hepatitis A IgG Today F11.21 - Opioid dependence, in remission Hepatitis B Surface Antigen Today F11.21 - Opioid dependence, in remission Syphilis Screen Today F11.21 - Opioid dependence, in remission Medications: New buprenorphine-naloxone 8-2 mg (Suboxone) place 1 film on inside of (each) cheek 2 film sublingual DAILY 30 days 60 ea 1RF Coding Level of Care Code Est Pt Level 3 (70871) Diagnoses Opioid use disorder, moderate, in sustained remission, dependence F11.21
[2025-02-27 14:34] VITALS: BP 180/100; BMI 35.4
== END 2025-02-27 15:04 | disposition home or self-care (01) ==
LOC: HO.HCC 14:27
PROVIDERS: PCP Internal Medicine; Visit Provider Internal Medicine
DX: F11.21 Opioid dependence, in remission (principal)
CPT/HCPCS: 99213

== ENCOUNTER 2025-05-13 14:03 | Outpatient (REF) | payer OTHER, SELFPAY ==
[2025-05-14 06:29] LABS: Syphilis Screen Nonreactive (Nonreactive)
[2025-05-14 06:50] LABS: HBS Num1 0.94 mIU/mL (0-7.99); HBsAGNum1 0.40 S/CO (0.00-0.99); HIV Num 1 0.05 S/CO (0.00-0.99); Hepatitis B Surface Antigen Negative (Negative); ~HepC Num1 0.82 S/CO (0.00-0.79); ~Hepatitis B Surface Antibody NONREACTIVE (Nonreactive)
[2025-05-14 07:59] LABS: ~HepC Num2 0.80; ~HepC Num3 0.79; ~Hepatitis C Antibody GRAYZONE (Nonreactive)
[2025-05-14 15:44] LABS: HCV Log PCR <1.18 NOT DETECTED Log IU/mL (NOT DETECTED); HepC Viral Load <15 NOT DETECTED IU/mL (NOT DETECTED)
[2025-05-15 08:08] LABS: ~Hepatitis A Antibody IgG 0.37 S/CO (0.00-0.99)
[2025-05-16 04:28] LABS: TS Negative Control Passed; TS Panel A 0; TS Panel B 0; TS Positive Control Passed; TSpotTB Negative (Negative)
== END 2025-05-13 14:04 | disposition home or self-care (01) ==
LOC: HO.LAB 14:03
PROVIDERS: Visit Provider Internal Medicine
DX: F11.21 Opioid dependence, in remission (principal); I10 Essential (primary) hypertension
CPT/HCPCS: 36415; 86481; 86706; 86708; 86780; 86803; 87340; 87389; 87522

== ENCOUNTER 2025-05-13 14:34 | Outpatient (AMB) | payer OTHER, SELFPAY ==
[2025-05-13 15:05] VITALS: BP 201/122; PULSE 74; O2SAT 98; BMI 37.2
--- NOTE | 2025-05-13 15:05 | MHC.OFFVIS ---
Vital Signs 05/13/25 15:05 05/13/25 15:11 Height 5 ft 9 in Weight 252 lb BMI 37.2 BP 201/122 H 224/120 H Blood Pressure Location Lt brachial Rt brachial Position Sitting Sitting Pulse 74 Pulse Source Pulse Oximeter Pulse Oximetry (%) 98 Oxygen Delivery Method Room Air Intake Visit Reasons: MAT Allergies No Known Allergies Allergy (Verified 05/13/25 15:36) Medication List - Last Reconciled 05/13/25 by GARFIELD Moore sertraline 100 mg PO DAILY NS HPI Comments Details: The patient is a 44-year-old male who presents for a follow-up for opiate use disorder. Reports no opioid use or other substances including alcohol with the exception of marijuana. 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 Reports feeling stable and doing well on buprenorphine-naloxone 8-2 mg, twice per day. Blood pressure readings are elevated initially at 201/122 at 15:05 and manually taken 224/120 at 15:11, no visual symptoms noted and patient denies symptoms. The client is scheduled to meet with a primary care physician to initiate care on 05/15/2025. [facility] Medical History Opioid use disorder Social History Smoked in Last 30 Days: No Substance Use Type: Marijuana Advance Directives: No Advance Directives Information Provided: No Do you have a plan to hurt others: No Plan Review of Systems Const All systems reviewed & are unremarkable except as noted in HPI and below Card Details: Blood pressure readings are elevated initially at 201/122 at 15:05 and manually taken 224/120 at 15:11, no visual symptoms noted and patient denies symptoms. Physical Exam Vital Signs: Last Vital Signs Pulse 74 05/13/25 15:05 BP 224/120 H 05/13/25 15:11 Pulse Ox 98 05/13/25 15:05 Oxygen Delivery Method Room Air 05/13/25 15:05 BMI result Body Mass Index 37.2 Const General: cooperative Psych Appearance: well kempt Mental Status: mental status grossly normal Speech and movement: Normal speech and movement present Affect: Anxious affect present Attitude: cooperative Thought process: Normal thought process present Thought content: Normal thought content present Insight: Good insight present (Psych) Judgement: Good judgement present (Psych) Assessment & Plan Assessment & Plan (1) Opioid use disorder, moderate, in sustained remission, dependence: Comment: He is doing well 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 Code(s): F11.21 - Opioid dependence, in remission Category: Medical (2) Hypertension: Code(s): I10 - Essential (primary) hypertension Category: Medical Qualifiers: Hypertension type: primary hypertension Qualified Code(s): I10 - Essential (primary) hypertension Plan The plan of care is to continue with buprenorphine-naloxone 8-2 mg, twice per day. Due to the elevated blood pressure readings patient will be escorted to the emergency room department for further evaluation. Medications: New buprenorphine-naloxone 8-2 mg (Suboxone) Place 1 film on inside of (each) cheek, twice per day. 1 film sublingual BID 60 ea 1RF Patient Instructions: Continue with buprenorphine-naloxone 8-2 mg, twice per day. Follow up with appointment on 05/15/2025 to establish care with primary care provider. To be escorted to the emergency room department for further evaluation related to elevated blood pressure readings today. Patient verbalized understanding and agreed with plan of care. Coding Level of Care Code Est Pt Level 4 (90613) Diagnoses Opioid use disorder, moderate, in sustained remission, dependence F11.21 Primary hypertension I10 Hypertension type: primary hypertension
[2025-05-13 15:11] VITALS: BP 224/120
== END 2025-05-13 16:36 | disposition home or self-care (01) ==
PROVIDERS: PCP Internal Medicine; Visit Provider Clinical Nurse Specialist Psychiatric/Mental Health
DX: F11.21 Opioid dependence, in remission (principal); I10 Essential (primary) hypertension
CPT/HCPCS: 99214

== ENCOUNTER 2025-05-13 15:27 | Emergency (ER) | payer OTHER, SELFPAY ==
[2025-05-13 15:34] VITALS: BP 219/128; PULSE 69; RESP 18; TEMP 36.5; O2SAT 97; BMI 36.2
--- NOTE | 2025-05-13 15:35 | ED_ITS ---
HPI - General Adult General Chief complaint: General Medical Stated complaint: High BP Time Seen by Provider: 05/13/25 17:10 Related Data Previous Rx's ?Medication ?Instructions ?Recorded sertraline 100 mg tablet 100 mg PO DAILY #90 tabs 07/29 amlodipine 5 mg tablet 5 mg PO DAILY #30 tabs 05/13 buprenorphine 8 mg-naloxone 2 mg 1 film sublingual BID #60 ea 05/13/25 sublingual film (Suboxone) Allergies Allergy/AdvReac Type Severity Reaction Status Date / Time No Known Allergies Allergy Verified 05/13/25 15:36 [facility] Past Medical History Medical History Opioid use disorder Social History Social History Smoked in Last 30 Days: No Substance Use Type: Marijuana Advance Directives: No Advance Directives Information Provided: No Do you have a plan to hurt others: No Plan Physical Exam ED Vital Signs: Vital Signs - 24 hr 05/13/25 15:34 05/13/25 17:03 05/13/25 17:43 Temperature 97.7 F 97.8 F Pulse Rate 69 76 Respiratory Rate 18 13 Blood Pressure 219/128 H 200/106 H 198/135 H Pulse Oximetry 97 99 Oxygen Delivery Method Room Air Room Air 05/13/25 17:59 05/13/25 18:11 Temperature 97.3 F Pulse Rate 59 66 Respiratory Rate 14 19 Blood Pressure 158/88 H 139/80 Pulse Oximetry 100 99 Oxygen Delivery Method Room Air Room Air BMI result Body Mass Index 36.2 Course Course Course Narrative: This is an RME: Additional HPI, ROS, PE not included below will be deferred to primary provider. RME assessment and note performed by: Lizzy Palencia PA-C This is a [id number]-male who presents to the ER with complaints of elevated BP reading at doctors office. Reports hx of HTN, was previously on amlodipine and no longer has a prescriber has not taken in > 1 year. BP 201/122 and 224/120 in outpatient office. No CP/SOB. 219/128 in triage. Pt is asymptomatic Plan: Labs, EKG, further ER eval needed Medications Administered Discontinued Medications Generic Name Dose Route Start Last Admin Trade Name Freq PRN Reason Stop Dose Admin Amlodipine Besylate 5 mg 05/13/25 17:27 05/13/25 17:43 Amlodipine Besylate 5 Mg Tablet PO 05/13/25 17:28 5 mg ONCE ONE Administration Protocol Medical Decision Making Lab Data 05/13/25 16:07 05/13/25 16:07 Labs: Lab Results 05/13/25 05/13/25 Range/Units 16:07 16:13 WBC 9.3 (4.8-10.8) X10*3/uL RBC 5.35 (4.60-5.80) X10*6/uL Hgb 15.4 (14.0-18.0) g/dl Hct 44.3 (42.0-52.0) % MCV 82.8 (80.0-98.0) fL MCH 28.8 (27.0-33.0) pg MCHC 34.8 (31.0-36.0) g/dl RDW 12.8 (11.0-16.0) % Plt Count 255 (160-400) X10*3/uL MPV 8.8 L (9.4-12.4) fL Immature Gran % (Auto) 0.3 (0.0-0.4) % Neut % (Auto) 55.1 (45-73) % Lymph % (Auto) 33.9 (20-40) % [place] % (Auto) 9.4 (2-11) % Eos % (Auto) 1.1 (0-4) % Baso % (Auto) 0.2 (0-2) % Lymph # (Auto) 3.2 (1.2-4.9) X10*3/uL [place] # (Auto) 0.9 (0.1-1.2) X10*3/uL Eos # (Auto) 0.1 (0.0-0.4) X10*3/uL Baso # (Auto) 0.0 (0.0-0.2) X10*3/uL Abs Immat Gran (auto) 0.03 (0.00-0.03) X10*3/uL Absolute Neuts (auto) 5.1 (2.0-8.3) x10*3/uL Absolute Nucleated RBC 0.000 (0.0-0.012) X10*3/uL Nucleated RBC % (auto) 0.0 (0.0-0.2) /100WBC Sodium 136 (135-145) mmol/L Potassium 4.3 (3.3-5.1) mmol/L Chloride 101 (96-108) mmol/L Carbon Dioxide 28 (22-29) mmol/L Anion Gap 11 L (12-20) BUN 13 (9-16) mg/dL Creatinine 0.88 (0.5-1.4) mg/dL Estim Creat Clear Calc 131.6 Estimated GFR > 60 Random Glucose 101 (60-115) mg/dL Calcium 9.3 (8.4-10.2) mg/dL Magnesium 2.1 (1.6-2.6) mg/dL Total Bilirubin 0.4 (0.0-1.0) mg/dL Direct Bilirubin 0.1 (0.0-0.5) mg/dL AST 21 (5-37) U/L ALT 19 (0-40) U/L Alkaline Phosphatase 79 (39-117) U/L Troponin I High Sens 3.4 (<3.5-35.0) ng/L B-Natriuretic Peptide 18 (<100) pg/mL Total Protein 7.7 (6.5-8.0) g/dL Albumin 4.5 (3.5-5.0) g/dL Urine Color Yellow Urine Appearance Clear Urine pH 5.5 (5.0-9.0) Ur Specific [place] <= 1.005 (1.005-1.025) Urine Protein Negative (Neg-Trace) mg/dL Urine Glucose (UA) Negative (Negative) mg/dL Urine Ketones Negative (Negative) mg/dL Urine Blood Negative (Negative) Urine Nitrite Negative (Negative) Ur Leukocyte Esterase Negative (Negative) Discharge Plan Discharge Clinical Impression: Hypertension Patient Disposition: Home, Self-Care Instructions: Hypertension (ED) Prescriptions: New amlodipine 5 mg tablet 5 mg PO DAILY Qty: 30 0RF No Action buprenorphine-naloxone [Suboxone] 8-2 mg film 1 film sublingual BID Qty: 60 1RF Rx Instructions: Place 1 film on inside of (each) cheek, twice per day. sertraline 100 mg tablet 100 mg PO DAILY Qty: 90 3RF Referrals: Kenan Mancera MD [Primary Care Provider, Internal Medicine] - 2 days Referral Note: Blood pressure recheck in 2 days Print Language: Kinyarwanda
--- NOTE | 2025-05-13 15:37 | ECG_ITS ---
Test Reason : hypertention Blood Pressure : */* mmHG Vent. Rate : 65 BPM Atrial Rate : 65 BPM P-R Int : 162 ms QRS Dur : 84 ms QT Int : 376 ms P-R-T Axes : 44 32 85 degrees QTcB Int : 391 ms Normal sinus rhythm Normal ECG No previous ECGs available Referred By: Lizzy Palencia Electronically Signed By: Theron Flores
[2025-05-13 16:13] LABS: MANUAL DIFF FLAG NO
[2025-05-13 16:16] LABS: Hematocrit 44.3 % (42.0-52.0); Hemoglobin 15.4 g/dl (14.0-18.0); Imm Gran Abs Auto 0.03 X10*3/uL (0.00-0.03); Imm Gran Pct Auto 0.3 % (0.0-0.4); Lymphocytes Absolute Auto 3.2 X10*3/uL (1.2-4.9); Mean Corpuscular HGB Conc 34.8 g/dl (31.0-36.0); Mean Corpuscular Hemoglobin 28.8 pg (27.0-33.0); Mean Corpuscular Volume 82.8 fL (80.0-98.0); NRBC Abs Auto 0.000 X10*3/uL (0.0-0.012); NRBC Pct Auto 0.0 /100WBC (0.0-0.2); Platelet Count 255 X10*3/uL (160-400); Red Blood Count 5.35 X10*6/uL (4.60-5.80); White Blood Count 9.3 X10*3/uL (4.8-10.8)
[2025-05-13 16:21] LABS: Appearance Urine Clear; Glucose Urine UA Negative (Negative); PH 5.5 (5.0-9.0); Specific Gravity - Urine <= 1.005 (1.005-1.025)
[2025-05-13 16:33] LABS: Alanine Aminotransferase 19 U/L (0-40); Albumin Level 4.5 g/dL (3.5-5.0); Alkaline Phosphatase 79 U/L (39-117); Anion Gap 11 (12-20); Aspartate Amino Transferase 21 U/L (5-37); Blood Urea Nitrogen 13 mg/dL (9-16); Calcium 9.3 mg/dL (8.4-10.2); Carbon Dioxide 28 mmol/L (22-29); Chloride 101 mmol/L (96-108); Creatinine Clr Calc Pharmacy 131.6; Estimated Glomerular Filt Rate > 60; Magnesium 2.1 mg/dL (1.6-2.6); Potassium 4.3 mmol/L (3.3-5.1); Sodium 136 mmol/L (135-145); Total Protein 7.7 g/dL (6.5-8.0)
[2025-05-13 16:35] LABS: B Type Natriuretic Peptide 18 pg/mL (<100)
[2025-05-13 16:36] LABS: Troponin-I High Sensitivity 3.4 ng/L (<3.5-35.0)
[2025-05-13 17:03] VITALS: BP 200/106; PULSE 76; RESP 13; TEMP 36.6; O2SAT 99
--- NOTE | 2025-05-13 17:27 | ED.GENADULT ---
HPI - General Adult General Chief complaint: General Medical Stated complaint: High BP Time Seen by Provider: 05/13/25 17:10 History of Present Illness HPI narrative: Patient is a 44-year-old male presents today with having episode of elevated blood pressure sent in by the clinic. Patient has no symptoms no chest pain or shortness breath no nausea no vomiting Related Data Previous Rx's ?Medication ?Instructions ?Recorded sertraline 100 mg tablet 100 mg PO DAILY #90 tabs 03/13/24 amlodipine 5 mg tablet 5 mg PO DAILY #30 tabs 05/13/25 buprenorphine 8 mg-naloxone 2 mg 1 film sublingual BID #60 ea 05/13/25 sublingual film (Suboxone) Allergies Allergy/AdvReac Type Severity Reaction Status Date / Time No Known Allergies Allergy Verified 05/13/25 15:36 Review of Systems Review of Systems: No fever no chills no chest pain or shortness of breath Yes all other systems are reviewed and are negative PMFSH Past Medical History Attestation statement: The following information was validated with the patient. Source: unable to obtain Medical History Opioid use disorder Social History Social History Smoked in Last 30 Days: No Substance Use Type: Marijuana Advance Directives: No Advance Directives Information Provided: No Do you have a plan to hurt others: No Plan Physical Exam ED Vital Signs: Vital Signs - 24 hr 05/13/25 15:34 05/13/25 17:03 05/13/25 17:43 Temperature 97.7 F 97.8 F Pulse Rate 69 76 Respiratory Rate 18 13 Blood Pressure 219/128 H 200/106 H 198/135 H Pulse Oximetry 97 99 Oxygen Delivery Method Room Air Room Air 05/13/25 17:59 05/13/25 18:11 Temperature 97.3 F Pulse Rate 59 66 Respiratory Rate 14 19 Blood Pressure 158/88 H 139/80 Pulse Oximetry 100 99 Oxygen Delivery Method Room Air Room Air BMI result Body Mass Index 36.2 Appearance: Alert. Oriented X3. No acute distress. Eyes: Pupils equal, round and reactive to light. ENT: Pharynx normal. Neck: Normal inspection. Neck supple. No lymph nodes noted. No crepitus CVS: Normal heart rate and rhythm. Pulses normal. Normal S1 and S2 Respiratory: No respiratory distress. Breath sounds normal. No Wheezing. No rales Abdomen: Soft and nontender. No rigidity. No distention. good BS x4 Skin: Skin warm and dry. Normal skin color. Normal skin turgor. Extremities: No lower extremity edema. Neurovascular intact to all extremities. No Lacerations. No Rash Neuro: Oriented X 3. No motor deficit. No sensory deficit. Moving all extermities. No slurred speech Medications Administered Discontinued Medications Generic Name Dose Route Start Last Admin Trade Name Frekhalif PRN Reason Stop Dose Admin Amlodipine Besylate 5 mg 05/13/25 17:27 05/13/25 17:43 Amlodipine Besylate 5 Mg Tablet PO 05/13/25 17:28 5 mg ONCE ONE Administration Protocol Medical Decision Making Medical Decision Making [facility] Narrative: Well-appearing patient has no symptoms was going to the clinic for Suboxone when he was noted to have elevated blood pressure. Patient in no distress. Patient is blood pressure in emergency department was 200/100. He is supposed to be on amlodipine. Kind of lost to follow-up. Unsure as to the dose of amlodipine is supposed to take. Will give back patient's blood pressure medicine and monitor. Patient was given 5 mg of amlodipine with good results repeat blood pressure is now 130/80 no distress. No symptoms. Workup was negative. Will discharge patient home. Differential Diagnosis Differential Diagnoses: The differential diagnosis associated with the presentation includes Hypertensive urgency hypertensive emergency Admission/Observation Consideration of admission/observation: Escalation of care including admission/observation considered No need for admission blood pressure is down well-appearing Lab Data [facility] Lab Attestation statement: I reviewed the patient's lab results. 05/13/25 16:07 05/13/25 16:07 Labs: Lab Results 05/13/25 05/13/25 Range/Units 16:07 16:13 WBC 9.3 (4.8-10.8) X10*3/uL RBC 5.35 (4.60-5.80) X10*6/uL Hgb 15.4 (14.0-18.0) g/dl Hct 44.3 (42.0-52.0) % MCV 82.8 (80.0-98.0) fL MCH 28.8 (27.0-33.0) pg MCHC 34.8 (31.0-36.0) g/dl RDW 12.8 (11.0-16.0) % Plt Count 255 (160-400) X10*3/uL MPV 8.8 L (9.4-12.4) fL Immature Gran % (Auto) 0.3 (0.0-0.4) % Neut % (Auto) 55.1 (45-73) % Lymph % (Auto) 33.9 (20-40) % [place] % (Auto) 9.4 (2-11) % Eos % (Auto) 1.1 (0-4) % Baso % (Auto) 0.2 (0-2) % Lymph # (Auto) 3.2 (1.2-4.9) X10*3/uL [place] # (Auto) 0.9 (0.1-1.2) X10*3/uL Eos # (Auto) 0.1 (0.0-0.4) X10*3/uL Baso # (Auto) 0.0 (0.0-0.2) X10*3/uL Abs Immat Gran (auto) 0.03 (0.00-0.03) X10*3/uL Absolute Neuts (auto) 5.1 (2.0-8.3) x10*3/uL Absolute Nucleated RBC 0.000 (0.0-0.012) X10*3/uL Nucleated RBC % (auto) 0.0 (0.0-0.2) /100WBC Sodium 136 (135-145) mmol/L Potassium 4.3 (3.3-5.1) mmol/L Chloride 101 (96-108) mmol/L Carbon Dioxide 28 (22-29) mmol/L Anion Gap 11 L (12-20) BUN 13 (9-16) mg/dL Creatinine 0.88 (0.5-1.4) mg/dL Estim Creat Clear Calc 131.6 Estimated GFR > 60 Random Glucose 101 (60-115) mg/dL Calcium 9.3 (8.4-10.2) mg/dL Magnesium 2.1 (1.6-2.6) mg/dL Total Bilirubin 0.4 (0.0-1.0) mg/dL Direct Bilirubin 0.1 (0.0-0.5) mg/dL AST 21 (5-37) U/L ALT 19 (0-40) U/L Alkaline Phosphatase 79 (39-117) U/L Troponin I High Sens 3.4 (<3.5-35.0) ng/L B-Natriuretic Peptide 18 (<100) pg/mL Total Protein 7.7 (6.5-8.0) g/dL Albumin 4.5 (3.5-5.0) g/dL Urine Color Yellow Urine Appearance Clear Urine pH 5.5 (5.0-9.0) Ur Specific Lyle <= 1.005 (1.005-1.025) Urine Protein Negative (Neg-Trace) mg/dL Urine Glucose (UA) Negative (Negative) mg/dL Urine Ketones Negative (Negative) mg/dL Urine Blood Negative (Negative) Urine Nitrite Negative (Negative) Ur Leukocyte Esterase Negative (Negative) Independent Interpretation I performed an independent interpretation of an: EKG (My interpretation of patient's shows a sinus pattern heart rate is 70 SD QRS QTC normal no acute ST segment elevation) External Record Review External record reviewed: Office record Chronic Conditions Patient?s care impacted by: Hypertension Social Determinants Patient?s care significantly limited by Social Determinants of Health including: Problems related to primary support group Discharge Plan Discharge Clinical Impression: Hypertension Qualifiers: Hypertension type: primary hypertension Qualified Code(s): I10 - Essential (primary) hypertension Patient Disposition: Home, Self-Care Instructions: Hypertension (ED) Prescriptions: New amlodipine 5 mg tablet 5 mg PO DAILY Qty: 30 0RF No Action buprenorphine-naloxone [Suboxone] 8-2 mg film 1 film sublingual BID Qty: 60 1RF Rx Instructions: Place 1 film on inside of (each) cheek, twice per day. sertraline 100 mg tablet 100 mg PO DAILY Qty: 90 3RF Referrals: Kenan Mancera MD [Primary Care Provider, Internal Medicine] - 2 days Referral Note: Blood pressure recheck in 2 days Print Language: Tajik
[2025-05-13 17:43] VITALS: BP 198/135
--- NOTE | 2025-05-13 17:47 | PC.NURSE ---
Pt A&Ox4, was sent to ED from doctor's office d/t high blood pressure. Pt has been off BP meds since 2023. Hes asymptomatic at this time. Breathing normally, unlabored. Skin pink, warm and dry. Denies pain. Pt medicated as charted.
[2025-05-13 17:59] VITALS: BP 158/88; PULSE 59; RESP 14; TEMP 36.3; O2SAT 100
[2025-05-13 18:11] VITALS: BP 139/80; PULSE 66; RESP 19; O2SAT 99
[2025-05-13 19:56] VITALS: BP 139/80; PULSE 66; RESP 19; TEMP 36.3; O2SAT 99
== END 2025-05-13 20:08 | disposition home or self-care (01) ==
PROVIDERS: Physician Assistant Medical; Emergency Provider Emergency Medicine Emergency Medical Services; PCP Internal Medicine
DX: I10 Essential (primary) hypertension (principal); Z79.899 Other long term (current) drug therapy; Z79.891 Long term (current) use of opiate analgesic
CPT/HCPCS: 36415; 80048; 80076; 81003; 83735; 83880; 84484; 85025; 93005; 99283; 99284

== ENCOUNTER → 2025-05-13 15:37 | Outpatient (BNV) | payer OTHER, SELFPAY | PROVIDERS: Emergency Provider Emergency Medicine Emergency Medical Services; PCP Internal Medicine; Visit Provider Internal Medicine Cardiovascular Disease | DX: I95.9 Hypotension, unspecified (principal) | CPT/HCPCS: 93010 ==

== ENCOUNTER 2025-07-20 12:46 | Outpatient (AMB) | payer OTHER, SELFPAY ==
--- NOTE | 2025-07-20 13:04 | A.OFFVIS_ITS ---
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 Denies use of opiates, alcohol, and other substances. 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 The patient has a history of hypertension and is currently out of his blood pressure medication. First visit with new primary care provider is scheduled for August 12. [facility] Medical History Opioid use disorder Social History Substance Use Type: Marijuana Review of Systems Const All systems reviewed & are unremarkable except as noted in HPI and below Physical Exam Vital Signs: Last Vital Signs Pulse 78 07/20/25 13:05 BP 186/102 H 07/20/25 13:05 Pulse Ox 98 07/20/25 13:05 Const General: cooperative Assessment & Plan Assessment & Plan (1) Opioid use disorder in remission: Code(s): F11.91 - Opioid use, unspecified, in remission Category: Medical (2) Hypertension: Code(s): I10 - Essential (primary) hypertension Category: Medical Qualifiers: Hypertension type: primary hypertension Qualified Code(s): I10 - Essential (primary) hypertension Plan The plan of care is to continue with buprenorphine-naloxone 8/2 mg BID and continue with amlodipine 5 mg daily. Follow up with new PCP on August 12. Follow-up at [facility] [place] in 3 months or sooner if needed. Medications: Changed From buprenorphine-naloxone 8-2 mg (Suboxone) Place 1 film on inside of (each) cheek, twice per day. 1 film sublingual BID 60 ea 1RF To buprenorphine-naloxone 8-2 mg (Suboxone) 1 film sublingually twice per day. 1 film sublingual BID 60 ea 2RF Refilled amlodipine 5 mg PO DAILY 30 tabs 0RF Patient Instructions: - Continue with buprenorphine-naloxone as prescribed. - Continue with a amlodipine as prescribed. - Follow-up in 3 months or sooner if needed. - Call with questions, concerns, or to report side effects/new onset of symptoms to [facility]. - The patient verbalized understanding and agreed with plan of care. Coding Level of Care Code Est Pt Level 3 (31010) Diagnoses Opioid use disorder in remission F11.91 Primary hypertension I10 Hypertension type: primary hypertension
[2025-07-20 13:05] VITALS: BP 186/102; PULSE 78; O2SAT 98
--- OUTSIDE RECORDS SUMMARY | 2025-07-20 17:32 | XMS_ITS | Clinical Summary ---
Author Organization [employer] Address [address] [place] [address] Care Team Providers Care Continuous Process Machine Operator Name Role Phone Unavailable Primary Care Provider Unavailabl e Encounters Date Type Department Care Team Description 06/16/2025 Telephone [facility] MEDICINE [address] [place], [place] [id number] Dav Diana MD new patient visit from Last 3 Months Social History Tobacco Use Types Packs/Day Years Used Date Smoking Tobacco: Never Assessed Sex and Gender Information Value Date Recorded Sex Assigned at Not on file Legal Sex Male 11:10 AM EDT Gender Identity Not on file Sexual Orientation Not on file Plan of Treatment Health Maintenance Due Date Last Done Comments Depression Screening 1980 HIV Screening 1980 Lipid Panel 1980 SDOH Screening 1980 Disability Screening 1980 Alcohol/Substance Use Screening 1992 Tobacco Screening 1992 Family Planning (PISQ) 1995 HPV Vaccines (1 - Male 3-dos e series) 1995 Hepatitis C Screening 1998 DTaP/Tdap/Td Vaccines (1 - Tdap) 1999 Hepatitis B Vaccines (1 of 3 - 19+ 3-dose series) 1999 COVID-19 Vaccine (1 - 2023-2 5 season) 2025 Influenza Vaccine (#1) 2025 Zoster Vaccines (1 of 2) 2030 RSV Patients and Pa tients Aged 60 years or older (1 - 1-dose 75+ series) 2055 HIB Vaccines Aged Out No longer eligi ble based on patient's age to complete this topic Hepatitis A Vaccines Aged Out No long er eligible based on patient's age to complete this topic IPV Vaccines Aged Out No longer eligi ble based on patient's age to complete this topic Meningococcal B Vaccine Aged Out No l onger eligible based on patient's age to complete this topic Meningococcal Vaccine Aged Out No antoinette yuan eligible based on patient's age to complete this topic Pneumococcal Vaccine: Pediat rics (0 to 5 Years) and At-Risk Patients (6 to 49) Years Aged Out No longer eligible b ased on patient's age to complete this topic RSV under 20 months Aged Out No longe r eligible based on patient's age to complete this topic Rotavirus Vaccines Aged Out No longer eligible based on patient's age to complete this topic Insurance [facility] , [address] [place] [address]
== END 2025-07-20 13:15 | disposition home or self-care (01) ==
LOC: HO.HCC 12:47
PROVIDERS: PCP Internal Medicine; Visit Provider Clinical Nurse Specialist Psychiatric/Mental Health
DX: F11.91 Opioid use, unspecified, in remission (principal); I10 Essential (primary) hypertension
CPT/HCPCS: 99213

== ENCOUNTER 2025-08-13 07:29 | Emergency (ER) | payer OTHER, SELFPAY ==
--- NOTE | ~2025-08-13 | XR_ITS ---
EXAMINATION: XR CHEST CLINICAL INFORMATION: chest pain COMPARISON: None available. TECHNIQUE: 2 views of the chest were obtained. FINDINGS: The cardiomediastinal silhouette is within normal limits. The lungs are well expanded. There is no focal consolidation, edema, or effusion. No pneumothorax. No acute osseous abnormality. XR/XR chest 2V IMPRESSION: No radiographic evidence of acute cardiopulmonary process. Electronically signed by: Shaan Snow MD 08/13/2025 08:42 AM EDT
[2025-08-13 07:33] VITALS: BP 181/117; PULSE 93; RESP 20; TEMP 36.2; O2SAT 97; BMI 34.1
--- NOTE | 2025-08-13 07:39 | ECG_ITS ---
Test Reason : chest tightness Blood Pressure : */* mmHG Vent. Rate : 76 BPM Atrial Rate : 76 BPM P-R Int : 150 ms QRS Dur : 82 ms QT Int : 378 ms P-R-T Axes : 46 42 87 degrees QTcB Int : 425 ms Normal sinus rhythm Normal ECG When compared with ECG of 13-May-2025 15:49, No significant change was found Referred By: Generic ED Physician Electronically Signed By: DAYA WILLIAM MD
[2025-08-13 07:50] LABS: MANUAL DIFF FLAG NO
[2025-08-13 07:52] LABS: Hematocrit 47.6 % (42.0-52.0); Hemoglobin 16.4 g/dl (14.0-18.0); Imm Gran Abs Auto 0.03 X10*3/uL (0.00-0.03); Imm Gran Pct Auto 0.3 % (0.0-0.4); Lymphocytes Absolute Auto 2.7 X10*3/uL (1.2-4.9); Mean Corpuscular HGB Conc 34.5 g/dl (31.0-36.0); Mean Corpuscular Hemoglobin 28.9 pg (27.0-33.0); Mean Corpuscular Volume 84.0 fL (80.0-98.0); NRBC Abs Auto 0.000 X10*3/uL (0.0-0.012); NRBC Pct Auto 0.0 /100WBC (0.0-0.2); Platelet Count 264 X10*3/uL (160-400); Red Blood Count 5.67 X10*6/uL (4.60-5.80); White Blood Count 9.3 X10*3/uL (4.8-10.8)
--- NOTE | 2025-08-13 08:01 | ED_ITS ---
HPI - General Adult General Chief complaint: General Medical Stated complaint: High BP Time Seen by Provider: 08/13/25 08:01 Source: patient and other (patient's girlfriend) Mode of arrival: ambulatory Limitations: no limitations History of Present Illness ED Provider: Leslie Neal PA-C HPI narrative: This is a 44 year old person assigned male at with a history of hypertension, anxiety, and substance use disorder in remission that presents for evaluation of chest tightness and anxiety. He was seen by primary care yesterday where he was switched from amlodipine 5 mg to nifedipine 30 mg to treat his hypertension. He endorses an increasing feeling of anxiety after his visit yesterday. He woke up this morning with continued anxiety and new chest tightness. He said it feels like congestion in his chest but denies any shortness of breath or orthopnea. He denies any recent upper respiratory illness or sick contacts. He endorses smoking marijuana daily but denies tobacco use. He is unsure if there is any history of clotting or bleeding disorders in his family. He denies any recent injuries, surgeries, or travel. Patient states that he used to be on a daily anti-anxiety medication however, he was stopped and he would like to be placed back on one. Related Data Previous Rx's ?Medication ?Instructions ?Recorded sertraline 100 mg tablet 100 mg PO DAILY #90 tabs 07/29 amlodipine 5 mg tablet 5 mg PO DAILY #30 tabs 07/20 buprenorphine 8 mg-naloxone 2 mg 1 film sublingual BID #60 ea 07/20/25 sublingual film (Suboxone) Allergies Allergy/AdvReac Type Severity Reaction Status Date / Time No Known Allergies Allergy Verified 08/13/25 07:37 Review of Systems 2 Constitutional: Constitutional: Reports as per HPI Eyes: Eyes: Reports as per HPI ENT: Reports as per HPI Cardiovascular: Cardiovascular: Reports as per HPI Respiratory: Respiratory: Reports as per HPI Gastrointestinal: Gastrointestinal: Reports as per HPI Genitourinary: Genitourinary: Reports as per HPI Musculoskeletal: Musculoskeletal: Reports as per HPI Integumentary/Breasts: Skin/Breast: Reports as per HPI Neurologic: Reports as per HPI Psychiatric: Psychiatric: Reports as per HPI Endocrine: Endocrine: Reports as per HPI Hematologic/Lymphatic: Hematologic/Lymphatic: Reports as per HPI Allergic/Immunologic: Allergic/Immunologic: Reports as per HPI [facility] Past Medical History Attestation statement: The following information was validated with the patient. (all information validated with the patient's girlfriend) Source: old records reviewed, nursing notes reviewed and other (patient's girlfriend provided additional history and confirmed the history provided by the patient. ) Medical History Opioid use disorder Social History Social History Substance Use Type: Marijuana Advance Directives: No Advance Directives Information Provided: No Do you have a plan to hurt others: No Plan Physical Exam ED Vital Signs: Vital Signs - 24 hr 08/13/25 07:33 08/13/25 08:21 08/13/25 10:00 Temperature 97.2 F 98.0 F Pulse Rate 93 73 75 Respiratory Rate 20 14 20 Blood Pressure 181/117 H 153/102 H 163/101 H Pulse Oximetry 97 99 97 Oxygen Delivery Method Room Air Room Air Room Air 08/13/25 10:46 Temperature 98.0 F Pulse Rate 75 Respiratory Rate 20 Blood Pressure 163/101 H Pulse Oximetry 97 Oxygen Delivery Method Room Air BMI result Body Mass Index 34.1 Const General: cooperative, no acute distress, alert and awake Nutritional Appearance: well nourished Orientation/consciousness: patient oriented x3 HENMT Head: Yes normal to inspection and Yes atraumatic Ears: hearing grossly normal bilaterally and external ears normal General nose exam: Normal external nose present, no nasal discharge noted and no epistaxis Face and sinus: Yes normal facial exam, No abrasion and No laceration Mouth: no drooling and no muffled voice Eyes General: appearance normal, both eyes and all related structures Periorbital: periorbital findings normal Eyelids: Yes eyelids normal Conjunctivae: conjunctivae normal Pupils: Equal, round and reactive pupils present EOM: EOMs intact bilaterally Neck Neck: Yes normal visual inspection and Yes full ROM Resp Effort & Inspection: normal respiratory effort and able to speak in complete sentences Auscultation: clear to auscultation bilaterally, no crackles, no rales and no rhonchi Cardio Rate: regular rate Rhythm: regular rhythm Neuro General: patient oriented x3 and moves all extremities Cranial nerves: Yes Equal, round and reactive pupils present Cognition (Neuro): normal cognition Extrem General: Yes normal to inspection and Yes full ROM Psych Appearance: grossly normal Mental Status: mental status grossly normal Speech and movement: Normal speech and movement present Affect: Anxious affect present Attitude: cooperative Thought process: Normal thought process present Thought content: Normal thought content present Insight: Good insight present (Psych) Medications Administered Discontinued Medications Generic Name Dose Route Start Last Admin Trade Name Lux PRN Reason Stop Dose Admin Hydroxyzine HCl 25 mg 08/13/25 08:29 08/13/25 08:49 Hydroxyzine Hcl 25 Mg Tablet PO 08/13/25 08:30 25 mg ONCE ONE Administration Medical Decision Making Medical Decision Making MDM Narrative: Patient is a 44 year old assigned male at with a history of HTN compliant on medications, anxiety, and OUD presenting to the emergency department today with chest tightness and feeling anxious. Patient's physical exam was as noted in the physical exam portion of this note. Patient's blood work was unremarkable. Patient's EKG was unremarkable. Patient's chest x-ray showed no acute process. I explained my physical exam findings as well as all test results to the patient and the patient's girlfriend. I answered all questions asked by the patient and by the patient's girlfriend. Patient received a dose of Hydroxyzine which, upon re-evaluation, he stated it helped his anxiousness some. Patient's clinical presentation is most consistent with atypical chest pain and anxiety. I stressed the importance of the patient taking his medication as directed (either prescribed or as the over the counter packaging recommends). I stressed the importance of the patient following up with his primary care provider and a mine captain. I stressed the importance of the patient returning to the emergency department immediately if his symptoms were to worsen or if he were to develop any dizziness, shortness of breath, difficulty breathing, chest pain, blurry vision, loss of vision, nausea, vomiting, abdominal pain, fever, chills, back pain, or any other complaints. Patient and the patient's girlfriend verbalized agreement and understanding with this treatment plan and discharge. Differential Diagnosis Differential Diagnoses: The differential diagnosis associated with the presentation includes Chest pain NSTEMI STEMI Atypical chest pain Anxiety Admission/Observation Consideration of admission/observation: Escalation of care including admission/observation considered Patient would have been admitted to the hospital had his work up had any findings where hospital admission was appropriate and his clinical presentation warranted hospital admission. Lab Data [facility] Lab Attestation statement: I reviewed the patient's lab results. My interpretation of these results are in the [facility] Rationale portion of this note. 08/13/25 07:46 08/13/25 07:46 Labs: Lab Results 08/13/25 08/13/25 08/13/25 Range/Units 07:46 08:40 08:42 WBC 9.3 (4.8-10.8) X10*3/uL RBC 5.67 (4.60-5.80) X10*6/uL Hgb 16.4 (14.0-18.0) g/dl Hct 47.6 (42.0-52.0) % MCV 84.0 (80.0-98.0) fL MCH 28.9 (27.0-33.0) pg MCHC 34.5 (31.0-36.0) g/dl RDW 12.5 (11.0-16.0) % Plt Count 264 (160-400) X10*3/uL MPV 8.5 L (9.4-12.4) fL Immature Gran % (Auto) 0.3 (0.0-0.4) % Neut % (Auto) 62.0 (45-73) % Lymph % (Auto) 28.8 (20-40) % [place] % (Auto) 7.4 (2-11) % Eos % (Auto) 1.3 (0-4) % Baso % (Auto) 0.2 (0-2) % Lymph # (Auto) 2.7 (1.2-4.9) X10*3/uL [place] # (Auto) 0.7 (0.1-1.2) X10*3/uL Eos # (Auto) 0.1 (0.0-0.4) X10*3/uL Baso # (Auto) 0.0 (0.0-0.2) X10*3/uL Abs Immat Gran (auto) 0.03 (0.00-0.03) X10*3/uL Absolute Neuts (auto) 5.8 (2.0-8.3) x10*3/uL Absolute Nucleated RBC 0.000 (0.0-0.012) X10*3/uL Nucleated RBC % (auto) 0.0 (0.0-0.2) /100WBC Sodium 138 (135-145) mmol/L Potassium 4.1 (3.3-5.1) mmol/L Chloride 106 (96-108) mmol/L Carbon Dioxide 25 (22-29) mmol/L Anion Gap 11 L (12-20) BUN 12 (9-16) mg/dL Creatinine 0.79 (0.5-1.4) mg/dL Estim Creat Clear Calc 142.2 Estimated GFR > 60 Random Glucose 129 H (60-115) mg/dL Calcium 9.2 (8.4-10.2) mg/dL Total Bilirubin 0.6 (0.0-1.0) mg/dL Direct Bilirubin 0.2 (0.0-0.5) mg/dL AST 20 (5-37) U/L ALT 21 (0-40) U/L Alkaline Phosphatase 88 (39-117) U/L Troponin I High Sens < 2.7 (<3.5-35.0) ng/L NT-Pro-B Natriuret Pep 68.6 (<300) pg/mL Total Protein 7.8 (6.5-8.0) g/dL Albumin 4.5 (3.5-5.0) g/dL Lipase 18 (8-78) U/L COVID-19 (LUNA) Negative (Negative) COVID-19 Clin Com See Note Influenza Type A (SHAHRZAD) Negative (Negative) Influenza Type B (SHAHRZAD) Negative (Negative) Influenza A & B Note See Note 08/13/25 Range/Units 09:52 WBC (4.8-10.8) X10*3/uL RBC (4.60-5.80) X10*6/uL Hgb (14.0-18.0) g/dl Hct (42.0-52.0) % MCV (80.0-98.0) fL MCH (27.0-33.0) pg MCHC (31.0-36.0) g/dl RDW (11.0-16.0) % Plt Count (160-400) X10*3/uL MPV (9.4-12.4) fL Immature Gran % (Auto) (0.0-0.4) % Neut % (Auto) (45-73) % Lymph % (Auto) (20-40) % [place] % (Auto) (2-11) % Eos % (Auto) (0-4) % Baso % (Auto) (0-2) % Lymph # (Auto) (1.2-4.9) X10*3/uL [place] # (Auto) (0.1-1.2) X10*3/uL Eos # (Auto) (0.0-0.4) X10*3/uL Baso # (Auto) (0.0-0.2) X10*3/uL Abs Immat Gran (auto) (0.00-0.03) X10*3/uL Absolute Neuts (auto) (2.0-8.3) x10*3/uL Absolute Nucleated RBC (0.0-0.012) X10*3/uL Nucleated RBC % (auto) (0.0-0.2) /100WBC Sodium (135-145) mmol/L Potassium (3.3-5.1) mmol/L Chloride (96-108) mmol/L Carbon Dioxide (22-29) mmol/L Anion Gap (12-20) BUN (9-16) mg/dL Creatinine (0.5-1.4) mg/dL Estim Creat Clear Calc Estimated GFR Random Glucose (60-115) mg/dL Calcium (8.4-10.2) mg/dL Total Bilirubin (0.0-1.0) mg/dL Direct Bilirubin (0.0-0.5) mg/dL AST (5-37) U/L ALT (0-40) U/L Alkaline Phosphatase (39-117) U/L Troponin I High Sens < 2.7 (<3.5-35.0) ng/L NT-Pro-B Natriuret Pep (<300) pg/mL Total Protein (6.5-8.0) g/dL Albumin (3.5-5.0) g/dL Lipase (8-78) U/L COVID-19 (ULNA) (Negative) COVID-19 Clin Com Influenza Type A (SHAHRZAD) (Negative) Influenza Type B (SHAHRZAD) (Negative) Influenza A & B Note Independent Interpretation I performed an independent interpretation of an: EKG and Plain X-Ray Interpretation: My interpretation is in agreement with the radiologist's impression of this imaging study. L Reason for Exam: chest pain EXAMINATION: XR CHEST CLINICAL INFORMATION: chest pain COMPARISON: None available. TECHNIQUE: 2 views of the chest were obtained. FINDINGS: The cardiomediastinal silhouette is within normal limits. The lungs are well expanded. There is no focal consolidation, edema, or effusion. No pneumothorax. No acute osseous abnormality. XR/XR chest 2V IMPRESSION: No radiographic evidence of acute cardiopulmonary process. Electronically signed by: Shaan Snow MD 08/13/2025 08:42 AM EDT RP Dictated By: Shaan Snow MD Signed By: Electronically signed by Shaan Snow MD 08/13/25 0842 I independently interpreted this EKG and am in agreement with the below findings: Vent. Rate: 76 BPM Atrial Rate: 76 BPM P-R Int: 150 ms QRS Dur: 82 ms QT Int: 378 ms P-R-T Axes: 46 42 87 degrees QTcB Int: 425 ms Normal sinus rhythm When compared with ECG of 13-May-2025 15:49, No significant change was found Electronically Signed By: TYRONE WILLIAM MD Dictated By: Tyrone William MD Signed By: Electronically signed by Tyrone William MD 08/13/25 1028 Radiology Impression Discussion of test interpretation with radiology: I have reviewed the radiologist's reading. Independent Historian Clinical information obtained from an independent historian. History obtained from or confirmed by: Other (patient's girlfriend provided additional history and confirmed the history provided by the patient. ) Chronic Conditions Patient?s care impacted by: Hypertension Discharge Plan Discharge Clinical Impression: Atypical chest pain Hypertension Qualifiers: Hypertension type: primary hypertension Qualified Code(s): I10 - Essential (primary) hypertension Patient Disposition: Home, Self-Care Instructions: Chest Pain (ED), Hypertension (ED) Additional Instructions: Your work up today was reassuring there is no EMERGENT cause for your symptoms. Continue taking your medication as prescribed. Consider taking your blood pressure every day and keeping it in a diary to share with your PCP. Be sure to mention to your PCP your desire to be re-started on a daily anti- anxiety medication. Establish and follow up with a mine captain. IF you are prescribed home medications and/or you are taking over the counter medications at home - it is very important you continue to do so as prescribed / directed unless told otherwise. Follow up with your primary care provider. Return to the emergency department immediately if your symptoms worsen or if you develop any numbness, tingling, dizziness, shortness of breath, difficulty breathing, chest pain, blurry vision, loss of vision, nausea, vomiting, abdominal pain, fever, chills, back pain, or any other complaints. L If you do not have a primary care provider - call any of the below numbers to establish and follow up with a primary care provider. [facility] Primary Care ([place]) [phone] [place] [address], [address] [facility] Primary Care ([address] [place]) [phone] [place] [address], [address] [facility], [address] [facility] Primary Care ([address] [facility]) [phone] [place] [address], [address] [facility], [address] [facility] Primary Care ([place]) [phone] [place] [address] [address] [facility], [address] [facility] Family Medicine [phone] [address] [facility], [address] Please see the information below about our Patient Portal. If you are not yet enrolled in the [facility] Patient Portal, you will receive an enrollment email invitation following your visit to any [facility] setting. You may also self-enroll in the Patient Portal by visiting our website: [email or web address] The following information is required to access the Patient Portal: - Your [facility] Medical Record Number - Your personal home email address (must match what is in your electronic medical record, Registration staff can assist with this) - Name - Date of Capabilities of the Patient Portal: - Message some providers - View upcoming appointments - Access your health summary, medical history, and visit history - View current conditions and allergies - View procedure and lab results - View your medications, including guidelines, side effects, and precautions - Complete pre-appointment questionnaires requested by your provider - Ready summary reports of your office visits and procedures To access the Patient Portal Mobile [employer], follow these directions: - Search [employer] in the [employer]uri[employer] Store or Google Play Store - Download the Yuriy - Search for [facility] - Enter your login/password Prescriptions: No Action sertraline 100 mg tablet 100 mg PO DAILY Qty: 90 3RF amlodipine 5 mg tablet 5 mg PO DAILY Qty: 30 0RF buprenorphine-naloxone [Suboxone] 8-2 mg film 1 film sublingual BID Qty: 60 2RF Rx Instructions: 1 film sublingually twice per day. Referrals: [facility] Cardiovascular Specialists [Provider Group] Referral Note: Call to establish and follow up with the cardiology team. Stand Alone Forms: Work/School Release Interventions: ED Discharge Assessment Last Done: 08/13/25 10:46 Discharge Date/Time: 08/13/25 10:51 Print Language: Setswana
[2025-08-13 08:08] LABS: Alanine Aminotransferase 21 U/L (0-40); Albumin Level 4.5 g/dL (3.5-5.0); Alkaline Phosphatase 88 U/L (39-117); Anion Gap 11 (12-20); Aspartate Amino Transferase 20 U/L (5-37); Blood Urea Nitrogen 12 mg/dL (9-16); Calcium 9.2 mg/dL (8.4-10.2); Carbon Dioxide 25 mmol/L (22-29); Chloride 106 mmol/L (96-108); Creatinine Clr Calc Pharmacy 142.2; Estimated Glomerular Filt Rate > 60; Lipase 18 U/L (8-78); Potassium 4.1 mmol/L (3.3-5.1); Sodium 138 mmol/L (135-145); Total Protein 7.8 g/dL (6.5-8.0)
[2025-08-13 08:19] LABS: Troponin-I High Sensitivity < 2.7 ng/L (<3.5-35.0)
[2025-08-13 08:21] VITALS: BP 153/102; PULSE 73; RESP 14; O2SAT 99
[2025-08-13 09:11] LABS: COVID-19 Test Negative (Negative); IDNOW Serial# 6674DD1D
[2025-08-13 09:23] LABS: IDNOW Serial# 55D5AD1C; Influenza B2 Negative (Negative)
[2025-08-13 09:25] LABS: NT Pro B Type Natriuretic Pept 68.6 pg/mL (<300)
[2025-08-13 10:00] VITALS: BP 163/101; PULSE 75; RESP 20; TEMP 36.7; O2SAT 97
[2025-08-13 10:17] LABS: Troponin-I High Sensitivity < 2.7 ng/L (<3.5-35.0)
--- NOTE | 2025-08-13 10:41 | PC.NURSE ---
Pt came in for chest tightness and anxiety. Changed HTN meds yesterday. Chest tightness resolved
[2025-08-13 10:46] VITALS: BP 163/101; PULSE 75; RESP 20; TEMP 36.7; O2SAT 97
== END 2025-08-13 10:51 | disposition home or self-care (01) ==
PROVIDERS: Physician Assistant Medical; Emergency Provider Emergency Medicine
DX: R07.89 Other chest pain (principal); I10 Essential (primary) hypertension; F41.9 Anxiety disorder, unspecified
CPT/HCPCS: 36415; 71046; 80048; 80076; 83690; 83880; 84484; 85025; 87502; 87635; 93005; 99283; 99284

== ENCOUNTER → 2025-08-13 07:39 | Outpatient (BNV) | payer OTHER, SELFPAY | PROVIDERS: Emergency Provider Emergency Medicine; Visit Provider Internal Medicine Cardiovascular Disease | DX: R07.89 Other chest pain (principal) | CPT/HCPCS: 93010 ==

== ENCOUNTER → 2025-08-13 08:25 | Outpatient (BNV) | payer OTHER, SELFPAY | PROVIDERS: Visit Provider Radiology Diagnostic Ultrasound | DX: R07.9 Chest pain, unspecified (principal) | CPT/HCPCS: 71046 ==

== ENCOUNTER 2025-10-19 14:51 | Outpatient (AMB) | payer OTHER, SELFPAY ==
[2025-10-19 15:01] VITALS: BP 168/78; PULSE 62; O2SAT 97; BMI 35.7
--- NOTE | 2025-10-19 15:01 | A.OFFVISCC_ITS ---
Vital Signs 10/19/25 15:01 Height 5 ft 9 in Weight 242 lb BMI 35.7 BP 168/78 H Pulse 62 Pulse Oximetry (%) 97 Intake Visit Reasons: MAT Allergies No Known Allergies Allergy (Verified 10/19/25 15:02) HPI Comments Details: A 44-year-old male presents for a follow up visit r/t GENESIS in sustained remission with buprenorphine-naloxone 8-2 mg BID. Reports continuing to work full-time with the [employer] and focusing on spending quality time with immediate family. Denies use of opiates, alcohol, and other substances. He continues to follow-up with PCP re: hypertension management. 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 Code(s): F11.21 - Opioid dependence, in remission Category: Medical Plan The plan of care is to continue with buprenorphine-naloxone 8-2 mg BID and follow-up in 3 months or sooner if needed. Medications: Refilled buprenorphine-naloxone 8-2 mg (Suboxone) 1 film sublingually twice per day. 1 film sublingual BID 60 ea 2RF Patient Instructions: - Continue with buprenorphine-naloxone as prescribed. - Follow-up in 3 months or sooner if needed. - Call with questions, concerns, or to report side effects/new onset of symptoms to [facility]. - The patient verbalized understanding and agreed with plan of care.
--- OUTSIDE RECORDS SUMMARY | 2025-10-19 21:19 | XMS_ITS | Clinical Summary ---
Author Organization [employer] Address [address] [place] [address] Care Team Providers Care Assistant Health Educator Name Role Phone Unavailable Primary Care Provider Unavailabl e Social History Tobacco Use Types Packs/Day Years [...] 3-dose series) 1999 COVID-19 Vaccine (1 - 2024-2 6 season) 2025 Influenza Vaccine (#1) 2025 Zoster [...] patient's age to complete this topic Insurance [facility] , [address] [place] [address]
== END 2025-10-19 15:19 | disposition home or self-care (01) ==
LOC: HO.HCC 14:51
PROVIDERS: Visit Provider Clinical Nurse Specialist Psychiatric/Mental Health
DX: F11.21 Opioid dependence, in remission (principal)
CPT/HCPCS: 99213